=== PATIENT | male | born 1990 | race Caucasian/White ===

== ENCOUNTER 2020-07-07 19:02 | Emergency (ER) | payer BC ==
[2020-07-07 19:18] VITALS: RESP 18; TEMP 99.3
[2020-07-07 19:51] LABS: Basophils # (A) 0.2 k/uL (0-0.2); Basophils % (A) 3 %; Eosinophils # (A) 0.3 k/uL (0-0.7); Eosinophils % (A) 4 %; HCT 43.6 % (39.0-53.0); HGB 14.9 gm/dL (13.0-17.5); Lymphocytes # (A) 2.2 k/uL (1.0-4.8); Lymphocytes % (A) 32 %; MCH 31.7 pg (25.0-35.0); MCHC 34.3 g/dL (31.0-37.0); MCV 92.5 fL (80.0-100.0); Mean Platelet Volume 6.8; Monocytes % (A) 14 %; Neutrophils # (A) 2.9 k/uL (1.3-7.7); Neutrophils % (A) 43 %; Platelet Count 345 k/uL (150-450); RBC 4.72 m/uL (4.30-5.90); RDW 15.7 % (11.5-15.5); WBC 6.8 k/uL (3.8-10.6)
--- NOTE | 2020-07-07 19:58 | CT ---
EXAMINATION TYPE: CT brain wo con DATE OF EXAM: 07/07/2020 COMPARISON: None available. HISTORY: paresthesias CT DLP: 1090.4 mGycm. Automated Exposure Control for Dose Reduction was Utilized. TECHNIQUE: CT scan of the head is performed without contrast. FINDINGS: There is no acute intracranial hemorrhage, mass effect, or midline shift identified. The ventricles and sulci are within normal limits in size. There is a small left maxillary sinus mucus retention cyst. The globes are intact and the visualized sinuses are otherwise clear. IMPRESSION: No acute intracranial hemorrhage, mass effect, or midline shift is seen.
[2020-07-07 20:17] LABS: ALT 187 U/L (4-49); AST 76 U/L (17-59); African American GFR (CKD) >90 (>60 ml/min/1.73 sqM); Albumin 4.8 g/dL (3.5-5.0); Alkaline Phosphatase 58 U/L (38-126); Anion Gap 10 mmol/L; Blood Urea Nitrogen 19 mg/dL (9-20); Carbon Dioxide 23 mmol/L (22-30); Chloride 110 mmol/L (98-107); Glucose 100 mg/dL (74-99); Lipase 57 U/L (23-300); Magnesium 2.1 mg/dL (1.6-2.3); Non-African American GFR(CKD) >90 (>60 ml/min/1.73 sqM); Phosphorus 3.8 mg/dL (2.5-4.5); Potassium 4.6 mmol/L (3.5-5.1); Sodium 143 mmol/L (137-145); Total Bilirubin 0.4 mg/dL (0.2-1.3); Total Protein 7.7 g/dL (6.3-8.2)
[2020-07-07] MEDS ORDERED: SODIUM CHLORIDE 0.9% 500 ML 500 ML IV ONE (20:25)
[2020-07-07 21:02] LABS: Appearance,Urine Clear (Clear); Bilirubin,Urine Negative (Negative); Blood,Urine Negative (Negative); Color,Urine Yellow; Glucose,Urine (UA) Negative (Negative); Ketones,Urine Negative (Negative); Leukocyte Esterase,Urine Negative (Negative); Nitrite,Urine Negative (Negative); PH, Urine 6.5 (5.0-8.0); Protein,Urine Negative (Negative); Specific Gravity,Urine 1.024 (1.001-1.035); Urobilinogen,Urine <2.0 mg/dL (<2.0)
[2020-07-07 21:05] VITALS: BP 137/93; PULSE 85
[2020-07-07 21:14] LABS: Amphetamine Screen,Urine Not Detected (NotDetected); Barbiturate Screen,Urine Not Detected (NotDetected); Benzodiazepines Screen,Urine Not Detected (NotDetected); Cocaine Screen,Urine Not Detected (NotDetected); Methadone Screen, Urine Not Detected (NotDetected); Opiate Screen,Urine Not Detected (NotDetected); Oxycodone Screen, Urine Not Detected (NotDetected); Phencyclidine Screen,Urine Not Detected (NotDetected); Tricyclic Antidepressant,Urine Not Detected (NotDetected); Urn Cannabinoid Scrn Not Detected (NotDetected)
--- NOTE | 2020-07-07 21:44 | ED ---
General Adult HPI - General Chief complaint: Neuro Symptoms/Deficit Stated complaint: numbness hands/legs Time Seen by Provider: 07/07/20 19:26 Source: patient, RN notes reviewed, old records reviewed Mode of arrival: ambulatory Limitations: no limitations - History of Present Illness Initial comments: 29-year-old male patient to ED for evaluation. Patient reports that for the last 3 days he has been having paresthesias from his foot that are ascending. He reports that his gait is unstable. Also some paresthesias of the hands. Patient also reports that for the last 4 weeks she has been having right upper quadrant pain. Patient was admitted to [facility] from 07/03 through 07/06 when he reportedly had extensive investigations. They determined that his liver was enlarged however there is no other acute process that they identified. She denies any headache or any other areas of pain. Denies any other complaints. Systemic: Pt denies fatigue, fever/chills, rash. Pt denies weakness, night sweats, weight loss. Neuro: Pt denies headache, visual disturbances, syncope or pre-syncope. HEENT: Pt denies ocular discharge or irritation, otalgia, rhinorrhea, pharyngitis or notable lymphadenopathy. Cardiopulmonary: Pt denies chest pain, SOB, heart palpitations, dyspnea on exertion. Abdominal/GI: Pt denies n/v/d. : Pt denies dysuria, burning w/ urination, frequency/urgency. Denies new onset urinary or bowel incontinence. MSK: Pt denies loss of strength. - Related Data Home Medications Medication Instructions Recorded Confirmed No Known Home Medications 07/07/20 07/07/20 Allergies Allergy/AdvReac Type Severity Reaction Status Date / Time No Known Allergies Allergy Verified 07/07/20 20:14 Review of Systems ROS Statement: Those systems with pertinent positive or pertinent negative responses have been documented in the HPI. ROS Other: All systems not noted in ROS Statement are negative. Past Medical History Past Medical History: No Reported History History of Any Multi-Drug Resistant Organisms: None Reported Past Surgical History: No Surgical Hx Reported Past Anesthesia/Blood Transfusion Reactions: No Reported Reaction Past Psychological History: Anxiety, Depression Smoking Status: Current every day smoker Past Alcohol Use History: Occasional Past Drug Use History: Marijuana, Methamphetamine - Past Family History Mother Family Medical History: Hypertension, Thyroid Disorder Father Family Medical History: No Reported History, Unable to Obtain Sister(s) Family Medical History: No Reported History, Thyroid Disorder Brother(s) Family Medical History: Seizure Disorder Daughter(s) Family Medical History: No Reported History Son(s) Family Medical History: No Reported History General Exam - General Exam Comments Initial Comments: Constitutional: NAD, AOX3, Pt has pleasant affect. HEENT: NC/AT, trachea midline, neck supple, no lymphadenopathy. External ears appear normal, without discharge. Mucous membranes moist. Eyes PERRLA, EOM intact. There is no scleral icterus. No pallor noted. Cardiopulmonary: RRR, no murmurs, rubs or gallops, no JVD noted. Lungs CTAB in anterior and posterior lorenzo. No peripheral edema. Abdominal exam: Abdomen soft and non-distended. Abdomen mildly tender to palpation RUQ region. Derby sign negative. Bowel sounds active in LLQ. No hepatosplenomegaly. No ecchymosis Neuro: CN II-XII intact. No nuchal rigidity. No raccon eyes, no perea sign. No cervical spinal tenderness. MSK: Sensation intact in upper and lower extremities. 2 out of 4 patellar reflex. No posterior calf tenderness bilaterally, homans sign negative bilaterally. Posterior tibialis and radial pulse +2 bilaterally. Sensation intact in upper and lower extremities. Full active ROM in upper and lower extremities, 5/5 stregnth. Limitations: no limitations Course Vital Signs 07/07/20 07/07/20 19:12 21:03 Temperature 99.3 F Pulse Rate 101 H 85 Respiratory 18 18 Rate Blood Pressure 150/83 137/93 O2 Sat by Pulse 98 100 Oximetry Medical Decision Making - Medical Decision Making 29-year-old male patient to ED for evaluation of paresthesias and gait i nstability for the last 3 days. He denies any recent vaccinations or any recent illness. Patient also been having abdominal pain for the last 4 weeks. Patient admitted to [facility] and reportedly had extensive investigations. Laboratory investigations revealed mildly elevated lactic acid and liver enzymes. Otherwise her noncompressive. CT brain is negative for acute pathology. Physical exam displayed intact neurologic exam, strength and gross sensation is intact of upper left extremities. Case was discussed in depth with Dr. Vigil. We contacted admitting physician Dr. Lugo however he is not comfortable accepting as he does not have neurology coverage until tomorrow. I discussed this with patient. Patient will be transferred to the [facility]. I spoke with neurologist Dr. Todd. He accepts patient. Dr. Todd requested a LP in the emergency department him to be contacted with the results. The emergency physician Dr. Li was made aware of this per the transfer team. Patient will be transferred via EMS. - Lab Data Result diagrams: 07/07/20 19:40 07/07/20 19:40 Lab Results 07/07/20 07/07/20 07/07/20 Range/Units 19:40 19:40 19:40 WBC 6.8 (3.8-10.6) k/uL RBC 4.72 (4.30-5.90) m/uL Hgb 14.9 (13.0-17.5) gm/dL Hct 43.6 (39.0-53.0) % MCV 92.5 (80.0-100.0) fL MCH 31.7 (25.0-35.0) pg MCHC 34.3 (31.0-37.0) g/dL RDW 15.7 H (11.5-15.5) % Plt Count 345 (150-450) k/uL MPV 6.8 Neutrophils % 43 % Lymphocytes % 32 % Monocytes % 14 % Eosinophils % 4 % Basophils % 3 % Neutrophils # 2.9 (1.3-7.7) k/uL Lymphocytes # 2.2 (1.0-4.8) k/uL Monocytes # 1.0 (0-1.0) k/uL Eosinophils # 0.3 (0-0.7) k/uL Basophils # 0.2 (0-0.2) k/uL Sodium 143 (137-145) mmol/L Potassium 4.6 (3.5-5.1) mmol/L Chloride 110 H (98-107) mmol/L Carbon Dioxide 23 (22-30) mmol/L Anion Gap 10 mmol/L BUN 19 (9-20) mg/dL Creatinine 0.96 (0.66-1.25) mg/dL Est GFR (CKD-EPI)AfAm >90 (>60 ml/min/1.73 sqM) Est GFR (CKD-EPI)NonAf >90 (>60 ml/min/1.73 sqM) Glucose 100 H (74-99) mg/dL Plasma Lactic Acid [place] 2.6 H* (0.7-2.0) mmol/L Calcium 10.0 (8.4-10.2) mg/dL Phosphorus 3.8 (2.5-4.5) mg/dL Magnesium 2.1 (1.6-2.3) mg/dL Total Bilirubin 0.4 (0.2-1.3) mg/dL AST 76 H (17-59) U/L ALT 187 H (4-49) U/L Alkaline Phosphatase 58 (38-126) U/L Total Protein 7.7 (6.3-8.2) g/dL Albumin 4.8 (3.5-5.0) g/dL Lipase 57 (23-300) U/L Urine Color Urine Appearance (Clear) Urine pH (5.0-8.0) Ur Specific [place] (1.001-1.035) Urine Protein (Negative) Urine Glucose (UA) (Negative) Urine Ketones (Negative) Urine Blood (Negative) Urine Nitrite (Negative) Urine Bilirubin (Negative) Urine Urobilinogen (<2.0) mg/dL Ur Leukocyte Esterase (Negative) Urine Opiates Screen (NotDetected) Ur Oxycodone Screen (NotDetected) Urine Methadone Screen (NotDetected) Ur Propoxyphene Screen (NotDetected) Ur Barbiturates Screen (NotDetected) U Tricyclic Antidepress (NotDetected) Ur Phencyclidine Scrn (NotDetected) Ur Amphetamines Screen (NotDetected) U Methamphetamines Scrn (NotDetected) U Benzodiazepines Scrn (NotDetected) Urine Cocaine Screen (NotDetected) U Marijuana (THC) Screen (NotDetected) 07/07/20 Range/Units 20:40 WBC (3.8-10.6) k/uL RBC (4.30-5.90) m/uL Hgb (13.0-17.5) gm/dL Hct (39.0-53.0) % MCV (80.0-100.0) fL MCH (25.0-35.0) pg MCHC (31.0-37.0) g/dL RDW (11.5-15.5) % Plt Count (150-450) k/uL MPV Neutrophils % % Lymphocytes % % Monocytes % % Eosinophils % % Basophils % % Neutrophils # (1.3-7.7) k/uL Lymphocytes # (1.0-4.8) k/uL Monocytes # (0-1.0) k/uL Eosinophils # (0-0.7) k/uL Basophils # (0-0.2) k/uL Sodium (137-145) mmol/L Potassium (3.5-5.1) mmol/L Chloride (98-107) mmol/L Carbon Dioxide (22-30) mmol/L Anion Gap mmol/L BUN (9-20) mg/dL Creatinine (0.66-1.25) mg/dL Est GFR (CKD-EPI)AfAm (>60 ml/min/1.73 sqM) Est GFR (CKD-EPI)NonAf (>60 ml/min/1.73 sqM) Glucose (74-99) mg/dL Plasma Lactic Acid Bradley (0.7-2.0) mmol/L Calcium (8.4-10.2) mg/dL Phosphorus (2.5-4.5) mg/dL Magnesium (1.6-2.3) mg/dL Total Bilirubin (0.2-1.3) mg/dL AST (17-59) U/L ALT (4-49) U/L Alkaline Phosphatase (38-126) U/L Total Protein (6.3-8.2) g/dL Albumin (3.5-5.0) g/dL Lipase (23-300) U/L Urine Color Yellow Urine Appearance Clear (Clear) Urine pH 6.5 (5.0-8.0) Ur Specific [place] 1.024 (1.001-1.035) Urine Protein Negative (Negative) Urine Glucose (UA) Negative (Negative) Urine Ketones Negative (Negative) Urine Blood Negative (Negative) Urine Nitrite Negative (Negative) Urine Bilirubin Negative (Negative) Urine Urobilinogen <2.0 (<2.0) mg/dL Ur Leukocyte Esterase Negative (Negative) Urine Opiates Screen Not Detected (NotDetected) Ur Oxycodone Screen Not Detected (NotDetected) Urine Methadone Screen Not Detected (NotDetected) Ur Propoxyphene Screen Not Detected (NotDetected) Ur Barbiturates Screen Not Detected (NotDetected) U Tricyclic Antidepress Not Detected (NotDetected) Ur Phencyclidine Scrn Not Detected (NotDetected) Ur Amphetamines Screen Not Detected (NotDetected) U Methamphetamines Scrn Not Detected (NotDetected) U Benzodiazepines Scrn Not Detected (NotDetected) Urine Cocaine Screen Not Detected (NotDetected) U Marijuana (THC) Screen Not Detected (NotDetected) Disposition Clinical Impression: Paresthesias, Abdominal pain Disposition: OTHER INSTITUTION NOT DEFINED Condition: Serious Is patient prescribed a controlled substance at d/c from ED?: No Referrals: Bro Reyes Jr, DO [Primary Care Provider] - 1-2 days - Out of Hospital Transfer - Req. Specs Out of Hospital Transfer - Requested Specifics: Other Emergency Center ([facility] - neurology)
== END 2020-07-07 22:07 | disposition other institution (70) ==
LOC: EC 19:02
DX: R10.11 Right upper quadrant pain (principal); R20.2 Paresthesia of skin; R26.89 Other abnormalities of gait and mobility; R74.02 Elevation of levels of lactic acid dehydrogenase [LDH]; R74.8 Abnormal levels of other serum enzymes; F17.200 Nicotine dependence, unspecified, uncomplicated
CPT/HCPCS: 36415; 70450; 80053; 80306; 81003; 83605; 83690; 83735; 84100; 85025; 96360; 99285

== ENCOUNTER 2022-09-30 22:51 | Inpatient (IN) | payer OTHER ==
[2022-10-01 00:41] LABS: Appearance,Urine Clear (Clear); Bilirubin,Urine Negative (Negative); Blood,Urine Negative (Negative); Color,Urine Yellow; Glucose,Urine (UA) Negative (Negative); Ketones,Urine Trace (Negative); Leukocyte Esterase,Urine Negative (Negative); Nitrite,Urine Negative (Negative); PH, Urine 5.5 (5.0-8.0); Protein,Urine Trace (Negative); Specific Gravity,Urine 1.032 (1.001-1.035)
[2022-10-01 00:59] LABS: Amphetamine Screen,Urine Not Detected (NotDetected); Barbiturate Screen,Urine Not Detected (NotDetected); Benzodiazepines Screen,Urine Not Detected (NotDetected); Cocaine Screen,Urine Not Detected (NotDetected); Methadone Screen, Urine Not Detected (NotDetected); Opiate Screen,Urine Not Detected (NotDetected); Oxycodone Screen, Urine Not Detected (NotDetected); Phencyclidine Screen,Urine Not Detected (NotDetected); Tricyclic Antidepressant,Urine Not Detected (NotDetected); Urn Cannabinoid Scrn Not Detected (NotDetected)
[2022-10-01] MEDS ORDERED: ONDANSETRON ODT 4 MG TAB PO STA (01:01)
--- NOTE | 2022-10-01 01:51 | ED ---
Psych HPI - General Chief Complaint: Psychiatric Symptoms Stated Complaint: Mental health Time Seen by Provider: 09/30/22 22:55 Source: patient Mode of arrival: ambulatory - History of Present Illness Initial Comments: 31-year-old male with past medical history of major depressive disorder with psychotic features, inhalant abuse who presents to the emergency department reporting auditory hallucinations. States that he hears voices telling him that he is worthless and that he needs to kill himself. He was recently hospitalized for similar complaints. He was started on several medications. Reports to me that he does not been taking them because they make him nauseated and he vomits. He has yet to follow up outpatient with his counselor. Does admit to inhalant abuse. He denies fevers. No cough. No sick contacts with similar symptoms. No other alleviating, precipitating or modifying factors - Related Data Previous Rx's Medication Instructions Recorded Mirtazapine [Remeron] 15 mg PO HS 30 Days #30 tab 10/06/22 QUEtiapine [SEROquel] 100 mg PO HS 30 Days #30 tab 10/06/22 Venlafaxine HCl ER [Effexor XR] 75 mg PO DAILY 30 Days #30 cap 10/06/22 Allergies Allergy/AdvReac Type Severity Reaction Status Date / Time No Known Allergies Allergy Verified 09/30/22 22:57 Review of Systems ROS Statement: Those systems with pertinent positive or pertinent negative responses have been documented in the HPI. ROS Other: All systems not noted in ROS Statement are negative. Past Medical History Past Medical History: No Reported History History of Any Multi-Drug Resistant Organisms: None Reported Past Surgical History: No Surgical Hx Reported Past Anesthesia/Blood Transfusion Reactions: No Reported Reaction Past Psychological History: Anxiety, Bipolar, Depression, PTSD, Schizophrenia Smoking Status: Current every day smoker Past Alcohol Use History: Occasional Past Drug Use History: None Reported - Past Family History Mother Family Medical History: Hypertension, Thyroid Disorder Father Family Medical History: No Reported History, Unable to Obtain Sister(s) Family Medical History: No Reported History, Thyroid Disorder Brother(s) Family Medical History: Seizure Disorder Daughter(s) Family Medical History: No Reported History Son(s) Family Medical History: No Reported History General Exam Limitations: no limitations General appearance: alert, in no apparent distress Head exam: Present: atraumatic, normocephalic, normal inspection Eye exam: Present: normal appearance, PERRL, EOMI. Absent: scleral icterus, conjunctival injection, periorbital swelling ENT exam: Present: normal exam, mucous membranes moist Neck exam: Present: normal inspection. Absent: tenderness, meningismus, lymphadenopathy Respiratory exam: Present: normal lung sounds bilaterally. Absent: respiratory distress, wheezes, rales, rhonchi, stridor Cardiovascular Exam: Present: regular rate, normal rhythm, normal heart sounds. Absent: systolic murmur, diastolic murmur, rubs, gallop, clicks GI/Abdominal exam: Present: soft, normal bowel sounds. Absent: distended, tenderness, guarding, rebound, rigid Extremities exam: Present: normal inspection, full ROM, normal capillary refill. Absent: tenderness, pedal edema, joint swelling, calf tenderness Back exam: Present: normal inspection Neurological exam: Present: alert, oriented X3, CN II-XII intact Psychiatric exam: Present: depressed, flat affect, suicidal ideation Skin exam: Present: warm, dry, intact, normal color. Absent: rash Course Vital Signs 09/30/22 22:52 Temperature 97.9 F Pulse Rate 117 H Respiratory 26 H Rate Blood Pressure 132/80 O2 Sat by Pulse 98 Oximetry Medical Decision Making - Medical Decision Making Was pt. sent in by a medical professional or institution (ELI Frank, SLAB INSPECTOR, urgent care, hospital, or residential...) When possible be specific @ -No Did you speak to anyone other than the patient for history (EMS, parent, family, police, friend...)? What history was obtained from this source @ -No Did you review nursing and triage notes (agree or disagree)? Why? @ -I reviewed and agree with nursing and triage notes Were old charts reviewed (outside hosp., previous admission, EMS record, old EKG, old radiological studies, urgent care reports/EKG's, residential records)? Report findings @ -No old charts were reviewed Differential Diagnosis (chest pain, altered mental status, abdominal pain women, abdominal pain men, vaginal bleeding, weakness, fever, dyspnea, syncope, headache, dizziness, GI bleed, back pain, seizure, CVA, palpatations, mental health, musculoskeletal)? @ -depression, anxiety, ODD, ADHD, schizophrenia, psychosis, drug use EKG interpreted by me (3pts min.). @ -Not done X-rays interpreted by me (1pt min.). @ -None done CT interpreted by me (1pt min.). @ -None done U/S interpreted by me (1pt. min.). @ -None done What testing was considered but not performed or refused? (CT, X-rays, U/S, labs)? Why? @ -None What meds were considered but not given or refused? Why? @ -None Did you discuss the management of the patient with other professionals (professionals i.e. DrShabana, PA, SLAB INSPECTOR, lab, RT, psych nurse, clinical social work aide, forming machine upkeep mechanic helper, teacher, correctional officer lieutenant, case investigator)? Give summary @ -EPS nurse Was smoking cessation discussed for >3mins.? @ -No Was critical care preformed (if so, how long)? @ -No Were there social determinants of health that impacted care today? How? (Homelessness, low income, unemployed, alcoholism, drug addiction, transportation, low edu. Level, literacy, decrease access to med. care, assisted, rehab)? @ -No Was there de-escalation of care discussed even if they declined (Discuss DNR or withdrawal of care, Hospice)? DNR status @ -No What co-morbidities impacted this encounter? (DM, HTN, Smoking, COPD, CAD, Cancer, CVA, ARF, Chemo, Hep., AIDS, mental health diagnosis, sleep apnea, morbid obesity)? @ -depression with psychotic features Was patient admitted / discharged? Hospital course, mention meds given and route, prescriptions, significant lab abnormalities, going to OR and other pertinent info. @ -Upon arrival patient is placed into room 11. A thorough history and physical exam was performed. Patient offered nausea medications however originally refused. Alcohol is negative. Drug screen is negative. He is medically cleared for EPS evaluation. EPS to evaluate the patient. Requests CBC, CMP and a Covid. This is ordered. Currently awaiting further recommendations Undiagnosed new problem with uncertain prognosis? @ -No Drug Therapy requiring intensive monitoring for toxicity (Heparin, Nitro, Insulin, Cardizem)? @ -No Were any procedures done? @ -No Diagnosis/symptom? @ -acute depression, sucidal ideations Acute, or Chronic, or Acute on Chronic? @ -acute Uncomplicated (without systemic symptoms) or Complicated (systemic symptoms)? @ -complicated Side effects of treatment? @ -No Exacerbation, Progression, or Severe Exacerbation? @ -No Poses a threat to life or bodily function? How? (Chest pain, [place], [place], pneumonia, PE, COPD, DKA, ARF, appy, cholecystitis, CVA, Diverticulitis, Homicidal, Suicidal, threat to staff... and all critical care pts) @ -Yes - Lab Data Result diagrams: 10/01/22 02:00 10/04/22 06:25 Lab Results 10/01/22 10/01/22 10/01/22 Range/Units 00:15 02:00 02:00 WBC 8.1 (3.8-10.6) k/uL RBC 4.39 (4.30-5.90) m/uL Hgb 14.3 (13.0-17.5) gm/dL Hct 38.7 L (39.0-53.0) % MCV 88.2 (80.0-100.0) fL MCH 32.6 (25.0-35.0) pg MCHC 36.9 (31.0-37.0) g/dL RDW 14.3 (11.5-15.5) % Plt Count 266 (150-450) k/uL MPV 7.4 Neutrophils % 48 % Lymphocytes % 43 % Monocytes % 4 % Eosinophils % 2 % Basophils % 1 % Neutrophils # 3.9 (1.3-7.7) k/uL Lymphocytes # 3.4 (1.0-4.8) k/uL Monocytes # 0.3 (0-1.0) k/uL Eosinophils # 0.2 (0-0.7) k/uL Basophils # 0.1 (0-0.2) k/uL Sodium 136 L (137-145) mmol/L Potassium 3.9 (3.5-5.1) mmol/L Chloride 104 (98-107) mmol/L Carbon Dioxide 22 (22-30) mmol/L Anion Gap 10 mmol/L BUN 17 (9-20) mg/dL Creatinine 0.91 (0.66-1.25) mg/dL Est GFR (CKD-EPI)AfAm >90 (>60 ml/min/1.73 sqM) Est GFR (CKD-EPI)NonAf >90 (>60 ml/min/1.73 sqM) Glucose 93 (74-99) mg/dL Estimated Ave Glu mg/dL Hemoglobin A1c (0.0-6.0) % Calcium 8.5 (8.4-10.2) mg/dL Total Bilirubin 0.5 (0.2-1.3) mg/dL AST 24 (17-59) U/L ALT 63 H (4-49) U/L Alkaline Phosphatase 80 (38-126) U/L Total Protein 6.7 (6.3-8.2) g/dL Albumin 4.2 (3.5-5.0) g/dL Urine Color Yellow Urine Appearance Clear (Clear) Urine pH 5.5 (5.0-8.0) Ur Specific [place] 1.032 (1.001-1.035) Urine Protein Trace H (Negative) Urine Glucose (UA) Negative (Negative) Urine Ketones Trace H (Negative) Urine Blood Negative (Negative) Urine Nitrite Negative (Negative) Urine Bilirubin Negative (Negative) Urine Urobilinogen 2.0 (<2.0) mg/dL Ur Leukocyte Esterase Negative (Negative) Urine Opiates Screen Not Detected (NotDetected) Ur Oxycodone Screen Not Detected (NotDetected) Urine Methadone Screen Not Detected (NotDetected) Ur Propoxyphene Screen Not Detected (NotDetected) Ur Barbiturates Screen Not Detected (NotDetected) U Tricyclic Antidepress Not Detected (NotDetected) Ur Phencyclidine Scrn Not Detected (NotDetected) Ur Amphetamines Screen Not Detected (NotDetected) U Methamphetamines Scrn Not Detected (NotDetected) U Benzodiazepines Scrn Not Detected (NotDetected) Urine Cocaine Screen Not Detected (NotDetected) U Marijuana (THC) Screen Not Detected (NotDetected) Coronavirus (PCR) (Not Detectd) 10/01/22 10/01/22 Range/Units 02:00 02:00 WBC (3.8-10.6) k/uL RBC (4.30-5.90) m/uL Hgb (13.0-17.5) gm/dL Hct (39.0-53.0) % MCV (80.0-100.0) fL MCH (25.0-35.0) pg MCHC (31.0-37.0) g/dL RDW (11.5-15.5) % Plt Count (150-450) k/uL MPV Neutrophils % % Lymphocytes % % Monocytes % % Eosinophils % % Basophils % % Neutrophils # (1.3-7.7) k/uL Lymphocytes # (1.0-4.8) k/uL Monocytes # (0-1.0) k/uL Eosinophils # (0-0.7) k/uL Basophils # (0-0.2) k/uL Sodium (137-145) mmol/L Potassium (3.5-5.1) mmol/L Chloride (98-107) mmol/L Carbon Dioxide (22-30) mmol/L Anion Gap mmol/L BUN (9-20) mg/dL Creatinine (0.66-1.25) mg/dL Est GFR (CKD-EPI)AfAm (>60 ml/min/1.73 sqM) Est GFR (CKD-EPI)NonAf (>60 ml/min/1.73 sqM) Glucose (74-99) mg/dL Estimated Ave Glu mg/dL 124 Hemoglobin A1c 6.0 (0.0-6.0) % Calcium (8.4-10.2) mg/dL Total Bilirubin (0.2-1.3) mg/dL AST (17-59) U/L ALT (4-49) U/L Alkaline Phosphatase (38-126) U/L Total Protein (6.3-8.2) g/dL Albumin (3.5-5.0) g/dL Urine Color Urine Appearance (Clear) Urine pH (5.0-8.0) Ur Specific [place] (1.001-1.035) Urine Protein (Negative) Urine Glucose (UA) (Negative) Urine Ketones (Negative) Urine Blood (Negative) Urine Nitrite (Negative) Urine Bilirubin (Negative) Urine Urobilinogen (<2.0) mg/dL Ur Leukocyte Esterase (Negative) Urine Opiates Screen (NotDetected) Ur Oxycodone Screen (NotDetected) Urine Methadone Screen (NotDetected) Ur Propoxyphene Screen (NotDetected) Ur Barbiturates Screen (NotDetected) U Tricyclic Antidepress (NotDetected) Ur Phencyclidine Scrn (NotDetected) Ur Amphetamines Screen (NotDetected) U Methamphetamines Scrn (NotDetected) U Benzodiazepines Scrn (NotDetected) Urine Cocaine Screen (NotDetected) U Marijuana (THC) Screen (NotDetected) Coronavirus (PCR) Not Detected (Not Detectd) Disposition Clinical Impression: Major depressive disorder, recurrent episode, severe, with psychotic behavior Disposition: ADMITTED IP TO THIS HOSP Condition: Stable Is patient prescribed a controlled substance at d/c from ED?: No - Out of Hospital Transfer - Req. Specs Out of Hospital Transfer - Requested Specifics: Psychiatric Non-ICU
[2022-10-01 02:11] LABS: Basophils # (A) 0.1 k/uL (0-0.2); Basophils % (A) 1 %; Eosinophils # (A) 0.2 k/uL (0-0.7); Eosinophils % (A) 2 %; HCT 38.7 % (39.0-53.0); HGB 14.3 gm/dL (13.0-17.5); Lymphocytes # (A) 3.4 k/uL (1.0-4.8); Lymphocytes % (A) 43 %; MCH 32.6 pg (25.0-35.0); MCHC 36.9 g/dL (31.0-37.0); MCV 88.2 fL (80.0-100.0); Mean Platelet Volume 7.4; Monocytes # (A) 0.3 k/uL (0-1.0); Monocytes % (A) 4 %; Neutrophils # (A) 3.9 k/uL (1.3-7.7); Neutrophils % (A) 48 %; Platelet Count 266 k/uL (150-450); RBC 4.39 m/uL (4.30-5.90); RDW 14.3 % (11.5-15.5); WBC 8.1 k/uL (3.8-10.6)
[2022-10-01 02:19] LABS: ALT 63 U/L (4-49); AST 24 U/L (17-59); African American GFR (CKD) >90 (>60 ml/min/1.73 sqM); Albumin 4.2 g/dL (3.5-5.0); Alkaline Phosphatase 80 U/L (38-126); Anion Gap 10 mmol/L; Blood Urea Nitrogen 17 mg/dL (9-20); Calcium 8.5 mg/dL (8.4-10.2); Carbon Dioxide 22 mmol/L (22-30); Chloride 104 mmol/L (98-107); Glucose 93 mg/dL (74-99); Non-African American GFR(CKD) >90 (>60 ml/min/1.73 sqM); Potassium 3.9 mmol/L (3.5-5.1); Sodium 136 mmol/L (137-145); Total Bilirubin 0.5 mg/dL (0.2-1.3); Total Protein 6.7 g/dL (6.3-8.2)
[2022-10-01] MEDS ORDERED: HALOPERIDOL LACTATE 5 MG/ML 1 ML VIAL IM PRN (04:16)
[2022-10-01] MEDS ORDERED: LORazepam 2 MG/ML INJ IM PRN (04:20)
[2022-10-01] MEDS: DULoxetine HCL 60 MG CAPSULE.DR PO SCH ×2 (08:32→21:42)
[2022-10-01] MEDS: NICOTINE 14MG/24HR PATCH TRANSDERM SCH (08:32)
[2022-10-01] MEDS: haloperidoL 5 MG TAB PO PRN ×2 (08:32→13:31)
[2022-10-01] MEDS ORDERED: busPIRone HCl 10 MG TAB PO SCH (09:00)
--- NOTE | 2022-10-01 12:58 | P.HP ---
Psychiatric H&P - . H&P Date: 10/01/22 History & Physical: Allergies Allergy/AdvReac Type Severity Reaction Status Date / Time No Known Allergies Allergy Verified 09/30/22 22:57 Vital Signs Temp 98.2 F 10/01/22 04:56 Pulse 100 10/01/22 04:56 Resp 18 10/01/22 04:56 BP 125/83 10/01/22 04:56 Pulse Ox 96 10/01/22 04:56 FiO2 Intake & Output 09/30/22 10/01/22 10/01/22 18:59 06:59 18:59 Weight 93.894 kg Laboratory Last Values WBC 8.1 k/uL (3.8-10.6) 10/01/22 02:00 RBC 4.39 m/uL (4.30-5.90) 10/01/22 02:00 Hgb 14.3 gm/dL (13.0-17.5) 10/01/22 02:00 Hct 38.7 % (39.0-53.0) L 10/01/22 02:00 MCV 88.2 fL (80.0-100.0) 10/01/22 02:00 MCH 32.6 pg (25.0-35.0) 10/01/22 02:00 MCHC 36.9 g/dL (31.0-37.0) 10/01/22 02:00 RDW 14.3 % (11.5-15.5) 10/01/22 02:00 Plt Count 266 k/uL (150-450) 10/01/22 02:00 MPV 7.4 10/01/22 02:00 Neutrophils % 48 % 10/01/22 02:00 Lymphocytes % 43 % 10/01/22 02:00 Monocytes % 4 % 10/01/22 02:00 Eosinophils % 2 % 10/01/22 02:00 Basophils % 1 % 10/01/22 02:00 Neutrophils # 3.9 k/uL (1.3-7.7) 10/01/22 02:00 Lymphocytes # 3.4 k/uL (1.0-4.8) 10/01/22 02:00 Monocytes # 0.3 k/uL (0-1.0) 10/01/22 02:00 Eosinophils # 0.2 k/uL (0-0.7) 10/01/22 02:00 Basophils # 0.1 k/uL (0-0.2) 10/01/22 02:00 Sodium 136 mmol/L (137-145) L 10/01/22 02:00 Potassium 3.9 mmol/L (3.5-5.1) 10/01/22 02:00 Chloride 104 mmol/L (98-107) 10/01/22 02:00 Carbon Dioxide 22 mmol/L (22-30) 10/01/22 02:00 Anion Gap 10 mmol/L 10/01/22 02:00 BUN 17 mg/dL (9-20) 10/01/22 02:00 Creatinine 0.91 mg/dL (0.66-1.25) 10/01/22 02:00 Est GFR (CKD-EPI)AfAm >90 (>60 ml/min/1.73 sqM) 10/01/22 02:00 Est GFR (CKD-EPI)NonAf >90 (>60 ml/min/1.73 sqM) 10/01/22 02:00 Glucose 93 mg/dL (74-99) 10/01/22 02:00 Calcium 8.5 mg/dL (8.4-10.2) 10/01/22 02:00 Total Bilirubin 0.5 mg/dL (0.2-1.3) 10/01/22 02:00 AST 24 U/L (17-59) 10/01/22 02:00 ALT 63 U/L (4-49) H 10/01/22 02:00 Alkaline Phosphatase 80 U/L (38-126) 10/01/22 02:00 Total Protein 6.7 g/dL (6.3-8.2) 10/01/22 02:00 Albumin 4.2 g/dL (3.5-5.0) 10/01/22 02:00 Urine Color Yellow 10/01/22 00:15 Urine Appearance Clear (Clear) 10/01/22 00:15 Urine pH 5.5 (5.0-8.0) 10/01/22 00:15 Ur Specific [place]ley 1.032 (1.001-1.035) 10/01/22 00:15 Urine Protein Trace (Negative) H 10/01/22 00:15 Urine Glucose (UA) Negative (Negative) 10/01/22 00:15 Urine Ketones Trace (Negative) H 10/01/22 00:15 Urine Blood Negative (Negative) 10/01/22 00:15 Urine Nitrite Negative (Negative) 10/01/22 00:15 Urine Bilirubin Negative (Negative) 10/01/22 00:15 Urine Urobilinogen 2.0 mg/dL (<2.0) 10/01/22 00:15 Ur Leukocyte Esterase Negative (Negative) 10/01/22 00:15 Urine Opiates Screen Not Detected (NotDetected) 10/01/22 00:15 Ur Oxycodone Screen Not Detected (NotDetected) 10/01/22 00:15 Urine Methadone Screen Not Detected (NotDetected) 10/01/22 00:15 Ur Propoxyphene Screen Not Detected (NotDetected) 10/01/22 00:15 Ur Barbiturates Screen Not Detected (NotDetected) 10/01/22 00:15 U Tricyclic Antidepress Not Detected (NotDetected) 10/01/22 00:15 Ur Phencyclidine Scrn Not Detected (NotDetected) 10/01/22 00:15 Ur Amphetamines Screen Not Detected (NotDetected) 10/01/22 00:15 U Methamphetamines Scrn Not Detected (NotDetected) 10/01/22 00:15 U Benzodiazepines Scrn Not Detected (NotDetected) 10/01/22 00:15 Urine Cocaine Screen Not Detected (NotDetected) 10/01/22 00:15 U Marijuana (THC) Screen Not Detected (NotDetected) 10/01/22 00:15 Coronavirus (PCR) Not Detected (Not Detectd) 10/01/22 02:00 10/01/22 12:58 IDENTIFYING DATA: Patient is a , employed, 31-year-old male with significant history of nitrous oxide abuse who presented to our hospital on 10/01/2022, brought in on his own volition for concerns of suicidal ideation and auditory hallucinations. HPI: Patient presented to the hospital on 10/01/2022 with a chief complaint of "hearing voices telling me to kill myself that started about 4 days ago." The patient reports that he was feeling significantly better since he was last discharged on 09/19/2022 however has been unable to fill his medications for Seroquel or Lyrica upon discharge. He states that the Seroquel cost him $169 so he stopped taking the medication. The patient was subsequently admitted to our psychiatric unit. Upon evaluation on the psychiatric unit, the patient reported initially that he was feeling an imminent risk of harming himself due to the severity of the auditory hallucinations and depressive symptoms. He was placed on one-to-one supervision. He was also administered Haldol. On evaluation as provider, the patient reports that he has been suicidal for the past 2 weeks since he has been off his medication. He also reports that he has been expressing worsening auditory hallucinations. He says that these voices are "in my head and commanding me to do things like kill myself." Furthermore, the patient reports that he has been engaging in nitrous oxide abuse. He reports that his last use of nitrous oxide inhalant use was approximately 1 week ago. Currently, the patient is endorsing suicidal ideation. He is denying any homicidal ideation. He reports no significant symptoms of tereza outside of substance abuse. He denies any periods of excessive energy, grandiosity, mood lability, or increased goal-directed activity. He is currently not endorsing any paranoia or other delusions. He is unable to identify any acute stressors aside from stopping his prescribed medications due to cost. The patient signed himself voluntarily into the psychiatric unit. PAST PSYCHIATRIC HISTORY: Patient has a previous history of major depressive disorder with psychotic features, inhalant abuse, and nicotine dependence. He was last hospitalized under psychiatric unit in August 2022 and was discharged on a regimen of BuSpar, Lyrica, Cymbalta, Seroquel. Patient denies any psychiatric outpatient follow-up. The patient attempted suicide by overdosing back in 2014. PMH: Past Medical History: No Reported History History of Any Multi-Drug Resistant Organisms: None Reported Past Surgical History: No Surgical Hx Reported Past Anesthesia/Blood Transfusion Reactions: No Reported Reaction Past Psychological History: Anxiety, Bipolar, Depression, PTSD, Schizophrenia Smoking Status: Current every day smoker Past Alcohol Use History: Occasional Past Drug Use History: None Reported ALLERGIES: NO KNOWN DRUG ALLERGIES CHEMICAL DEPENDENCY HISTORY: The patient reports that he has been smoking one pack per day of tobacco. He denies any marijuana, alcohol, or illicit drug use. He does admit to abusing nitric oxide. He says his last use was approximately one week ago. He states that he uses this daily. FAMILY PSYCHIATRIC/SUBSTANCE USE HISTORY: No reported family psychiatric history. SOCIAL HISTORY: Patient was born and raised in [place], [place]. He is to his Naty for the past 3 years. They have 4 children together. He currently lives with Naty and his 4 children. He completed high school. 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 He reports that he is currently on probation until April for retail fraud. MENTAL STATUS EXAM: General Appearance: Patient appears to be stated age is alert, directable, and attempts to cooperate. Patient appears to have fair hygiene and grooming. Behavior: Patient is seated without any agitated behavior. Eye contact is appropriate and psychomotor slowing was evident. Speech: Patient's speech is fluent and nonpressured. Mood/Affect: Patient reports their mood is depressed, affect is congruent and withdrawn. Suicidality/Homicidality: Patient denies having any homicidal ideation intent or plan. Patient endorses suicidal ideation. Perceptions: Patient denies any visual hallucinations however he does endorse auditory hallucinations. Though content/process: There is no evidence of any delusional thought content and thought process is linear and goal-directed. Memory and concentration: AOX3, grossly intact for the purposes of this session. Can spell "WORLD" backwards Judgment and insight: Fair STRENGTHS/WEAKNESSES: Strength is that the patient appears to have good family support. Weakness is that the patient engages in substance abuse and is nonadherent with treatment. INTELLECT: average IMPRESSIONS: Major depressive disorder, recurrent, severe, with psychotic features Inhalant use disorder Tobacco use disorder PLAN: -Patient is admitted under voluntary status to MHU for stabilization of psychiatric symptoms and safety. Patient signed adult voluntary form and medication consent and is placed in patient's chart. -Medications : We will increase Seroquel to 100 mg by mouth at bedtime for psychosis. Discussed with utilization management in regards to good Rx and other payment options for medications. Continued Cymbalta 60 mg by mouth twice a day for neuropathy and depression Start Remeron 15 mg by mouth at bedtime for depression/insomnia/nausea -Ativan and Haldol PRN for agitation/aggression -Patient was counselled on substance abuse and desired to cut back on use -Patient was informed of the risks, benefits and side effects of the medication and patient verbally consented to taking the medications. Patient signed med consent form and was placed in chart. -Internal Medicine consult to perform medical evaluation and physical. -NRT - nicotine patch -SW on board for discharge planning. Encourage patient to participate in groups to work on coping skills. 10/01/22 12:58
[2022-10-01] MEDS: MAG HYDROX/AL HYDROX/SIMETH 30 ML CUP PO PRN (13:23)
[2022-10-01] MEDS: LORazepam 1 MG TAB PO PRN (13:31)
[2022-10-01] MEDS ORDERED: PREGABALIN 50 MG CAP PO SCH (21:00)
[2022-10-01] MEDS ORDERED: QUEtiapine 25 MG TAB PO SCH (21:00)
[2022-10-01] MEDS: QUEtiapine 100 MG TAB PO SCH (21:42)
[2022-10-01] MEDS: MIRTAZAPINE 15 MG TAB PO SCH (21:42)
[2022-10-01] MEDS ORDERED: LACTULOSE 20 GM/30 ML CUP PO ONE (21:47)
--- NOTE | 2022-10-01 21:48 | P.CONS ---
History of Present Illness - Reason for Consult Consult date: 10/01/22 Medical management Requesting physician: Benji Dickey - Chief Complaint Suicidal - History of Present Illness As per psychiatrist Dr. Dickey records: Patient presented to the hospital on 10/01/2022 with a chief complaint of "hearing voices telling me to kill myself that started about 4 days ago." The patient reports that he was feeling significantly better since he was last discharged on 09/19/2022 however has been unable to fill his medications for Seroquel or Lyrica upon discharge. He states that the Seroquel cost him $169 so he stopped taking the medication. The patient was subsequently admitted to our psychiatric unit. Upon evaluation on the psychiatric unit, the patient reported initially that he was feeling an imminent risk of harming himself due to the severity of the auditory hallucinations and depressive symptoms. He was placed on one-to-one supervision. He was also administered Haldol. On evaluation as provider, the p atient reports that he has been suicidal for the past 2 weeks since he has been off his medication. He also reports that he has been expressing worsening auditory hallucinations. He says that these voices are "in my head and commanding me to do things like kill myself." Furthermore, the patient reports that he has been engaging in nitrous oxide abuse. He reports that his last use of nitrous oxide inhalant use was approximately 1 week ago. Currently, the patient is endorsing suicidal ideation. He is denying any homicidal ideation. He reports no significant symptoms of tereza outside of substance abuse. He denies any periods of excessive energy, grandiosity, mood lability, or increased goal-directed activity. He is currently not endorsing any paranoia or other delusions. He is unable to identify any acute stressors aside from stopping his prescribed medications due to cost. I'm seeing the patient later in the day. Rather sleepy. Feels depressed. Suicidal. Has not eaten well for a week. No bowel movement for a week. Episodes of perspiration. Tired. Depressed. Review of systems: GEN.: Tired EYES: None HEENT: None NECK: None RESPIRATORY: None CARDIOVASCULAR: None GASTROINTESTINAL: None GENITOURINARY: None MUSCULOSKELETAL: None LYMPHATICS: None HEMATOLOGICAL: None PSYCHIATRY: As above NEUROLOGICAL: None Past medical history to include: Bipolar, PTSD, schizophrenia Social history: Lives with his and children. Smokes cigarettes. Has been using nitrous oxide since 2019. In the past also started methamphetamines. Alcohol occasionally. Physical examination: VITAL SIGNS: 98.2, 100, 18, 08/19/1982, 96% room air GENERAL: BMI 31.5, laying in bed sleepy but answers questions. EYES: Pupils equal. Conjunctiva normal. HEENT: External appearance of nose and ears normal, oral cavity grossly normal. NECK: JVD not raised; masses not palpable. HEART: First and second heart sounds are normal; no edema. LUNGS: Respiratory rate normal; clear to auscultation. ABDOMEN: Soft, nontender, liver spleen not palpable, no masses palpable. PSYCH: [Answering questions, appropriately. Depressed.. MUSCULOSKELETAL:No Clubbing/cyanosis;muscles-grossly intact NEUROLOGICAL: Cranial nerves grossly intact; no facial asymmetry, power and sensation grossly intact. LYMPHATICS: No lymph nodes palpable in the axilla and neck INVESTIGATIONS, reviewed in the clinical context: White count 8.1 hemoglobin 14.3 platelets 266 sodium 126 potassium 3.9 BUN 17 creatinine 0.91 Urine drug screen: Unremarkable COVID-19 PCR: Not detected Assessment and plan: -Major depression recurrent with psychotic features Medications per psychiatry -Anorexia secondary to depression Expect improvement with antidepressant -Constipation with no bowel movement for last 7 days Lactulose 20 g times 1 -Chronic nicotine dependence, cigarette smoker Nicotine patch. Patient to follow-up with his family doctor Dr. Anthony Rivera upon discharge. Thank you Dr. Dickey Past Medical History Past Medical History: No Reported History History of Any Multi-Drug Resistant Organisms: None Reported Past Surgical History: No Surgical Hx Reported Past Anesthesia/Blood Transfusion Reactions: No Reported Reaction Past Psychological History: Anxiety, Bipolar, Depression, PTSD, Schizophrenia Smoking Status: Current every day smoker Past Alcohol Use History: Occasional Past Drug Use History: None Reported Additional Drug Use History / Comment(s): PT USED METHAMPHETAMINES ON 09/06/14 - Past Family History Mother Family Medical History: Hypertension, Thyroid Disorder Father Family Medical History: No Reported History, Unable to Obtain Sister(s) Family Medical History: No Reported History, Thyroid Disorder Brother(s) Family Medical History: Seizure Disorder Daughter(s) Family Medical History: No Reported History Son(s) Family Medical History: No Reported History Medications and Allergies Home Medications Medication Instructions Recorded Confirmed Type Acetaminophen Tab [Tylenol] 650 mg PO Q4HR PRN tab 09/24/22 Rx DULoxetine HCL [Cymbalta] 60 mg PO BID 30 Days #60 cap 09/24/22 Rx Nicotine 14Mg/24Hr Patch [Habitrol] 1 patch TRANSDERM DAILY 14 Days 09/24/22 Rx #14 patch Pregabalin [Lyrica] 50 mg PO HS 10 Days #10 cap 09/24/22 Rx QUEtiapine [SEROquel] 75 mg PO HS 30 Days #90 tab 09/24/22 Rx busPIRone HCl [Buspar] 10 mg PO BID 30 Days #60 tab 09/24/22 Rx Allergies Allergy/AdvReac Type Severity Reaction Status Date / Time No Known Allergies Allergy Verified 09/30/22 22:57 Physical Exam Vitals: Vital Signs Temp Pulse Pulse Resp BP BP Pulse Ox 10/01/22 04:56 98.2 F 100 18 125/83 96 09/30/22 22:52 97.9 F 117 H 26 H 132/80 98 Intake and Output 10/01/22 10/01/22 10/01/22 06:59 14:59 22:59 Other: Weight 93.894 kg Results CBC & Chem 7: 10/01/22 02:00 10/01/22 02:00 Labs: Abnormal Lab Results - Last 24 Hours (Table) 10/01/22 10/01/22 10/01/22 Range/Units 00:15 02:00 02:00 Hct 38.7 L (39.0-53.0) % Sodium 136 L (137-145) mmol/L ALT 63 H (4-49) U/L Urine Protein Trace H (Negative) Urine Ketones Trace H (Negative)
[2022-10-02] MEDS: NICOTINE 14MG/24HR PATCH TRANSDERM SCH (09:17)
[2022-10-02] MEDS: DULoxetine HCL 60 MG CAPSULE.DR PO SCH ×2 (09:17→20:35)
[2022-10-02] MEDS: haloperidoL 5 MG TAB PO PRN (09:18)
[2022-10-02] MEDS: LORazepam 1 MG TAB PO PRN (09:18)
[2022-10-02] MEDS: MAG HYDROX/AL HYDROX/SIMETH 30 ML CUP PO PRN (09:18)
[2022-10-02] MEDS ORDERED: ONDANSETRON ODT 4 MG TAB PO STA (13:40)
[2022-10-02] MEDS ORDERED: ONDANSETRON 4 MG TAB PO PRN (13:44)
[2022-10-02] MEDS: MIRTAZAPINE 15 MG TAB PO SCH (20:35)
[2022-10-02] MEDS: QUEtiapine 100 MG TAB PO SCH (20:35)
[2022-10-02] MEDS: PREGABALIN 75 MG CAP PO SCH (20:35)
[2022-10-03] MEDS: NICOTINE 14MG/24HR PATCH TRANSDERM SCH (09:20)
[2022-10-03] MEDS: PANTOPRAZOLE 40 MG TABLET PO SCH (09:20)
[2022-10-03] MEDS: DULoxetine HCL 60 MG CAPSULE.DR PO SCH ×2 (09:20→20:59)
[2022-10-03] MEDS: LORazepam 1 MG TAB PO PRN (16:03)
[2022-10-03] MEDS: ACETAMINOPHEN TAB 325 MG TAB PO PRN ×2 (16:03→21:00)
[2022-10-03] MEDS: MAG HYDROX/AL HYDROX/SIMETH 30 ML CUP PO PRN (19:12)
[2022-10-03] MEDS ORDERED: LACTULOSE 20 GM/30 ML CUP PO ONE (20:38)
[2022-10-03] MEDS: PREGABALIN 75 MG CAP PO SCH (20:59)
[2022-10-03] MEDS: QUEtiapine 100 MG TAB PO SCH (21:00)
[2022-10-03] MEDS: MIRTAZAPINE 15 MG TAB PO SCH (21:00)
[2022-10-03] MEDS: IOPAMIDOL CONTRAST (ORAL USE) VIAL PO PRN ×2 (22:19→23:30)
[2022-10-03] MEDS ORDERED: SODIUM CHLORIDE 0.9% 1,000 ML IV ONE (22:43)
--- NOTE | 2022-10-04 03:55 | CT ---
EXAMINATION TYPE: CT abdomen pelvis w con DATE OF EXAM: 10/04/2022 COMPARISON: None HISTORY: Right lower quadrant pain CT DLP: mGycm Automated exposure control for dose reduction was used. CONTRAST: The contrast was Isovue 100 mL. There is also oral contrast. The lung bases are clear. No pleural effusion. Heart size is normal. There is some minimal fatty infi ltration of the liver. Spleen and stomach pancreas and gallbladder appear intact. The bile ducts are nondilated. There is no adrenal mass. Kidneys show satisfactory contrast opacification. No hydronephrosis. Delaye d images show normal renal excretion. No retroperitoneal adenopathy. Appendix is posterior and appear s normal. There is normal contrast opacification of the small bowel. No dilated loops. No sign of a b owel obstruction. No intestinal wall thickening. There is no mesenteric edema. No ascites or free air. The bladder distends smoothly. No pelvic mass. No inguinal hernia. There are a few inguinal lymph nod es up to 1.5 cm. No hernia. The lumbar vertebrae have normal spacing and alignment. The posterior elements are intact. No taco raúl fracture. Bony pelvis is intact. The hip joints are intact. Sacroiliac joints appear normal. IMPRESSION: Negative CT scan abdomen and pelvis. Normal appendix. Mild fatty infiltration of the liver. No sign o f inflammatory bowel disease.
[2022-10-04 07:00] LABS: African American GFR (CKD) >90 (>60 ml/min/1.73 sqM); Anion Gap 9 mmol/L; Blood Urea Nitrogen 13 mg/dL (9-20); Calcium 8.7 mg/dL (8.4-10.2); Carbon Dioxide 25 mmol/L (22-30); Chloride 109 mmol/L (98-107); Glucose 93 mg/dL (74-99); Non-African American GFR(CKD) >90 (>60 ml/min/1.73 sqM); Potassium 4.4 mmol/L (3.5-5.1); Sodium 143 mmol/L (137-145)
[2022-10-04] MEDS: NICOTINE 14MG/24HR PATCH TRANSDERM SCH (08:22)
[2022-10-04] MEDS: PANTOPRAZOLE 40 MG TABLET PO SCH (08:22)
[2022-10-04] MEDS: ACETAMINOPHEN TAB 325 MG TAB PO PRN ×2 (08:24→16:46)
[2022-10-04] MEDS ORDERED: DICYCLOMINE 10 MG CAP PO STA (09:52)
[2022-10-04] MEDS ORDERED: DICYCLOMINE 10 MG CAP PO PRN (09:52)
[2022-10-04] MEDS: LORazepam 1 MG TAB PO PRN (10:06)
--- NOTE | 2022-10-04 14:11 | P.PN ---
Subjective Call physician: Dr. Lagos This is a pleasant 51 years old was admitted to the mental health unit on 10/01 with signs symptoms with major depressive disorder with psychotic features, he was seen and evaluated by medical service with Dr. Lagos on the same day. At that time he was found to have constipation and ordered lactulose one time, as well as tonic nicotine dependence and major depressive disorder. Patient also noticed to be obese with BMI of 31.5. Yesterday I was called by the sadness patient complains from abdominal pain and constipation and he wanted something for bowel movement, 1 extra dose of lactulose as provided. Shortly thereafter talked to me about the pt and she was concerned pt is having sever abd pain and need to be addressed , so we agreed on doing ct of the abdomen for further evaluation , ct is ordered with both oral and iv contrast (DDx was appendicitis , cholecystits, gastroenteritis, IBS, pancreatitis and hepatitis, bowel obstruction, psychogenic), on follow up with the bed side rn it looks like the pt was doing better and he as sitting in the room and playing cards with his colleagues, so i talked to the bed side rn galen and suggested to avoid iv contrast as i felt pt did not need it but ok for oral contrast , galen contacted dr. hall who decided to keep the ct contrast with both iv and oral contrast: Result showing negative CT scan abdomen and pelvis. Normal appendix. Mild fatty infiltration of the liver. No sign of inflammatory bowel disease) I saw the patient this morning he was lying in bed comfortable relaxed acute distress, he was still complaining from pain mainly in the right side of the abdomen with some nonspecific generalized tenderness. no reports for bleeding per rectum. He reports abdominal pain about 3/10 in severity, improving from 8-9/10 in severity last night. Nonspecific, nonradiating. No vomiting. No diarrhea. No active urinary complaints, and also patient denies chest pain or dyspnea. No coughing, no headache or dizziness weakness or numbness. I checked with the bedside nurse, is doing well this afternoon and he had his lunch and looks like he is improving Objective - Vital Signs Vital signs: Vital Signs Temp 97.7 F 10/04/22 07:00 Pulse 79 10/04/22 07:00 Resp 14 10/04/22 07:00 BP 122/57 10/04/22 07:00 Pulse Ox 97 10/04/22 07:00 FiO2 - Exam GENERAL: The patient is alert and oriented x3, not in any acute distress. Well developed, well nourished. HEENT: Pupils are round and equally reacting to light. EOMI. No scleral icterus. No conjunctival pallor. Normocephalic, atraumatic. No pharyngeal erythema. No thyromegaly. CARDIOVASCULAR: S1 and S2 present. No murmurs, rubs, or gallops. PULMONARY: Chest is clear to auscultation, no wheezing or crackles. -ABDOMEN: Soft, generalized mild, nondistended, normoactive bowel sounds. No palpable organomegaly. MUSCULOSKELETAL: No joint swelling or deformity. EXTREMITIES: No cyanosis, clubbing, or pedal edema. NEUROLOGICAL: Gross neurological examination did not reveal any focal deficits. SKIN: No rashes. no petechiae. - Labs CBC & Chem 7: 10/01/22 02:00 10/04/22 06:25 Labs: Abnormal Lab Results - Last 24 Hours (Table) 10/04/22 Range/Units 06:25 Chloride 109 H (98-107) mmol/L Assessment and Plan Assessment: Generalized nonspecific abdominal pain could be psychogenic versus irritable bowel syndrome vs other. Improving Constipation Nicotine dependence Obese with BMI of 31.5. Depression with psychotic features Plan: Continue with Protonix and add bentyl prn add Colace 100 mg bid x2 days for constipation Continue with Tylenol when necessary check liver enzymes and lipase and amylase management of psych illnesses as per psychiatric primary team we recommend patient follow up with GI service upon discharge, contact information Suleiman Jj is placed in his discharge instructions DVT prophylaxis: No need patient is mobile and low risk GI prophylaxis: Protonix we recommend patient also to follow up with his PCP Dr. Anthony Rivera in 1 week after discharge thank you for consulting us, we will see the patient on as needed basis, please call for any further question or clarification.
[2022-10-04 14:52] LABS: Albumin 4.2 g/dL (3.5-5.0); Bilirubin, Delta 0.3 mg/dL (0.0-0.2); Total Bilirubin 0.3 mg/dL (0.2-1.3); Total Protein 6.7 g/dL (6.3-8.2)
[2022-10-04] MEDS: MAGNESIUM HYDROXIDE 2,400 MG/10 ML CUP PO PRN (17:03)
[2022-10-04] MEDS ORDERED: DULoxetine HCL 30 MG CAPSULE.DR PO SCH (17:37)
[2022-10-04] MEDS ORDERED: VENLAFAXINE HCL ER 37.5 MG CAP PO STA (17:39)
[2022-10-04] MEDS: DOCUSATE 100 MG CAP PO SCH (20:32)
[2022-10-04] MEDS: QUEtiapine 100 MG TAB PO SCH (20:32)
[2022-10-04] MEDS: MIRTAZAPINE 15 MG TAB PO SCH (20:32)
[2022-10-04] MEDS ORDERED: DULoxetine HCL 60 MG CAPSULE.DR PO SCH (21:00)
--- NOTE | 2022-10-04 22:16 | P.PN ---
Progress Note - Text Progress Note Date: 10/04/22 Interval history: Patient was directable and agreeable to speak with bond writer. He reports depressed mood, still feeling like he is "better off ". He reports guilt, low concentration and appetite, feeling tired and endorses suicidal ideation with no specific plan at this time. He denies homicidal ideation, intent or plan. Denies any auditory or visual hallucinations. He reports feeling better since decreasing the Cymbalta, doesn't feel foggy anymore like he did on 60 mg BID. We reviewed his past medications in detail: Zoloft (2015), Effexor XR (2014, didn't stay on it), Wellbutrin, Seroquel, Klonopin, Remeron. Mental status exam: General Appearance: Patient appears to be stated age, alcocer, fair hygiene/grooming Behavior: No agitated behavior. Patient is calm and directable Speech: Patient's speech is fluent and non-pressured. Mood/Affect: Mood is depressed, affect is congruent and constricted. Suicidality/Homicidality: Patient endorses suicidal ideation, but denies homicidal ideation intent or plan. Perceptions: Patient denies any auditory or visual hallucinations. Though content/process: There is no evidence of any delusional thought content and thought process is linear and goal-directed. Memory and concentration: AOX3, grossly intact for the purposes of this session Judgment and insight: improving mildly Assessment/Plan: Continue with current diagnosis. Patient continues to meet criteria for inpatient psychiatric admission for symptom stabilization and safety. Cymbalta decreased to 30 mg x 1 today, then discontinue. Start Effexor XR 37.5 mg QAM for today, then increase to 75 mg daily in the morning starting tomorrow AM. Discontinue Lyrica since he does not feel it is helping his pain. He would like referral to inpatient rehab following discharge. He was seen by the medical doctor. CT abd/pelvis was negative. He was started on Colace. Hepatic panel, lipase and amylase ordered. Monitor for medication compliance and for any psychotropic medication side effects. Will continue to monitor ongoing response to treatment. Encouraged participation in milieu.
--- NOTE | 2022-10-04 22:22 | P.PN ---
Progress Note - Text Progress Note Date: 10/03/22 Interval history: Patient was directable and agreeable to speak with process description writer. He reports irritable mood, decreased appetite, nausea, feeling dizzy and confused. He denies suicidal or homicidal ideation, intent or plan. Denies any auditory or visual hallucinations. He complains of severe RUQ pain that radiates to the back. He appears in pain, sweat on his brow. He reports a history of fatty liver. I spoke with medical doctor Dr. Duvall and we will order him an CT abdomen/pelvis. Mental status exam: General Appearance: Patient appears to be stated age, alcocer, fair hygiene/grooming Behavior: No agitated behavior. Patient is calm and directable Speech: Patient's speech is fluent and non-pressured. Mood/Affect: Mood is irritable, affect is congruent and constricted. Suicidality/Homicidality: Patient endorses suicidal ideation, but denies homicidal ideation intent or plan. Perceptions: Patient denies any auditory or visual hallucinations. Though content/process: There is no evidence of any delusional thought content and thought process is linear and goal-directed. Memory and concentration: AOX3, grossly intact for the purposes of this session Judgment and insight: improving mildly Assessment/Plan: Continue with current diagnosis. Patient continues to meet criteria for inpatient psychiatric admission for symptom stabilization and safety. Decrease Cymbalta to 60 mg QHS and consider cross-taper onto another antidepressant, but will wait until abdominal work-up is completed before initiating another antidepressant. Increase Lyrica to 75 mg daily for neuropathic pain. CT abd/pelvis ordered. Zofran PRN for nausea. Monitor for medication compliance and for any psychotropic medication side effects. Will continue to monitor ongoing response to treatment. Encouraged participation in milieu.
--- NOTE | 2022-10-04 22:30 | P.PN ---
Progress Note - Text Progress Note Date: 10/02/22 Interval history: (Late entry due to computer problems on 10/02/22) Patient was directable and agreeable to speak with writer technical publications. He reports mood is "not that good", reports acid reflux, nausea and stomach pain. He reports hearing voices telling him he's worthless and to kill himself, but does not appear to be attending to internal stimuli. He reports his mood is angry at himself. He required Haldol 5 mg po x 1 this morning. He reports he was taking Cymbalta at 60 mg at home, and was not taking the Seroquel because he couldn't afford. We discussed Good[facility] and compared prices with [facility] being the cheapest pharmacy for him. He denies suicidal or homicidal ideation, intent or plan. Denies any visual hallucinations. Mental status exam: General Appearance: Patient appears to be stated age, alcocer, fair hygiene/grooming Behavior: No agitated behavior. Patient is calm and directable. Speech: Patient's speech is fluent and non-pressured. Mood/Affect: Mood is "not good" affect is congruent and constricted. Suicidality/Homicidality: Patient endorses suicidal ideation, but denies homicidal ideation intent or plan. Perceptions: Patient denies any auditory or visual hallucinations. Though content/process: There is no evidence of any delusional thought content and thought process is linear and goal-directed. Memory and concentration: AOX3, grossly intact for the purposes of this session Judgment and insight: Improving mildly Assessment/Plan: Continue with current diagnosis. Patient continues to meet criteria for inpatient psychiatric admission for symptom stabilization and safety. Continue Cymbalta 60 mg BID for depression. Zofran PRN for nausea. Monitor for medication compliance and for any psychotropic medication side effects. Will continue to monitor ongoing response to treatment. Encouraged participation in milieu.
[2022-10-05] MEDS: ACETAMINOPHEN TAB 325 MG TAB PO PRN (05:38)
[2022-10-05 07:07] LABS: Albumin 4.3 g/dL (3.5-5.0); Bilirubin, Delta 0.3 mg/dL (0.0-0.2); Total Bilirubin 0.3 mg/dL (0.2-1.3); Total Protein 6.8 g/dL (6.3-8.2)
[2022-10-05] MEDS: PANTOPRAZOLE 40 MG TABLET PO SCH (07:49)
[2022-10-05] MEDS: VENLAFAXINE HCL ER 75 MG CAP PO SCH (07:49)
[2022-10-05] MEDS: DOCUSATE 100 MG CAP PO SCH ×2 (07:49→20:01)
[2022-10-05] MEDS: NICOTINE 14MG/24HR PATCH TRANSDERM SCH (07:49)
[2022-10-05] MEDS: MAGNESIUM HYDROXIDE 2,400 MG/10 ML CUP PO PRN (10:06)
[2022-10-05] MEDS: LORazepam 1 MG TAB PO PRN (13:28)
[2022-10-05] MEDS ORDERED: diphenhydrAMINE 25 MG CAP PO STA (19:06)
--- NOTE | 2022-10-05 19:46 | P.PN ---
Progress Note - Text Progress Note Date: 10/05/22 Interval history: Patient was seen attending group and was directable and agreeable to speak with group underwriter. He reports good mood today, and reports this "is the best I've felt in two months". He fells better now that she is off of the Cymbalta and started the Effexor XR. He denies suicidal ideation, plan or intent. He denies homicidal ideation, intent or plan. Denies any auditory or visual hallucinations. He is compliant with his medications and denies side effects today. We reviewed his lab results and discussed his delta bilirubin is elevated at 0.3 and his ALT is elevated at 64. He has been referred to the GI service, Dr. Ashley Grossman, and should follow-up after discharge to further evaluate his RUQ pain and labs. Dr. Grossman's contact information should be in his discharge instructions. Patient expressed understanding. Mental status exam: General Appearance: Patient appears to be stated age, alcocer, fair hygiene/grooming Behavior: No agitated behavior. Patient is calm and directable Speech: Patient's speech is fluent and non-pressured. Mood/Affect: Mood is good, affect is congruent and euthymic. Suicidality/Homicidality: Patient denies suicidal ideation, plan or intent, but denies homicidal ideation intent or plan. Perceptions: Patient denies any auditory or visual hallucinations. Though content/process: There is no evidence of any delusional thought content and thought process is linear and goal-directed. Memory and concentration: AOX3, grossly intact for the purposes of this session Judgment and insight: improving mildly Assessment/Plan: Continue with current diagnosis. Patient continues to meet criteria for inpatient psychiatric admission for symptom stabilization and safety. Cymbalta discontinued yesterday. Continue Effexor XR 75 mg daily in the morning for depression/anxiety. He was seen by the medical doctor. CT abd/pelvis was negative. He was started on Colace. Delta bilirubin is elevated at 0.3 and his ALT is elevated at 64. He has been referred to the GI service, Dr. Ashley Grossman, and should follow-up after discharge to further evaluate his RUQ pain and labs. Monitor for medication compliance and for any psychotropic medication side effects. Will continue to monitor ongoing response to treatment. Encouraged participation in milieu. He would like referral to inpatient rehab following discharge. If he continues to stabilize, can consider discharge in the next 1-2 days.
[2022-10-05] MEDS: MIRTAZAPINE 15 MG TAB PO SCH (20:01)
[2022-10-05] MEDS: QUEtiapine 100 MG TAB PO SCH (20:01)
[2022-10-06] MEDS: LORazepam 1 MG TAB PO PRN (03:32)
[2022-10-06 03:37] VITALS: BP 137/72; PULSE 117; RESP 17; TEMP 97.5
[2022-10-06] MEDS: NICOTINE 14MG/24HR PATCH TRANSDERM SCH (08:29)
[2022-10-06] MEDS: VENLAFAXINE HCL ER 75 MG CAP PO SCH (08:30)
[2022-10-06] MEDS: PANTOPRAZOLE 40 MG TABLET PO SCH (08:30)
[2022-10-06] MEDS: DOCUSATE 100 MG CAP PO SCH (08:30)
[2022-10-06] MEDS: MAGNESIUM HYDROXIDE 2,400 MG/10 ML CUP PO PRN (08:36)
--- NOTE | 2022-10-06 11:33 | P.DS ---
Providers Date of admission: 10/01/22 04:09 Expected date of discharge: 10/06/22 Attending physician: Benji Dickey MD Consults: 10/01/22 04:16 Consult Physician Routine Consulting Provider: Jaden Lagos Consult Reason/Comments: H&P medical management Do you want consulting provider notified?: Yes, Notify in am Primary care physician: Anthony Rivera MD - Discharge Diagnosis(es) (1) Major depressive disorder, recurrent episode, severe, with psychotic behavior Status: Acute Priority: High (2) Inhalant abuse Status: Chronic Priority: Medium (3) Nicotine dependence Status: Chronic Priority: Medium Hospital Course: Admission HPI: Patient is a , employed, 31-year-old male with significant history of nitrous oxide abuse who presented to our hospital on 10/01/2022, brought in on his own volition for concerns of suicidal ideation and auditory hallucinations. Patient presented to the hospital on 10/01/2022 with a chief complaint of "hearing voices telling me to kill myself that started about 4 days ago." The patient reports that he was feeling significantly better since he was last discharged on 09/19/2022 however has been unable to fill his medications for Seroquel or Lyrica upon discharge. He states that the Seroquel cost him $169 so he stopped taking the medication. The patient was subsequently admitted to our psychiatric unit. Upon evaluation on the psychiatric unit, the patient reported initially that he was feeling an imminent risk of harming himself due to the severity of the auditory hallucinations and depressive symptoms. He was placed on one-to-one supervision. He was also administered Haldol. On evaluation as provider, the patient reports that he has been suicidal for the past 2 weeks since he has been off his medication. He also reports that he has been expressing worsening auditory hallucinations. He says that these voices are "in my head and commanding me to do things like kill myself." Furthermore, the patient reports that he has been engaging in nitrous oxide abuse. He reports that his last use of nitrous oxide inhalant use was approximately 1 week ago. Currently, the patient is endorsing suicidal ideation. He is denying any homicidal ideation. He reports no significant symptoms of tereza outside of substance abuse. He denies any periods of excessive energy, grandiosity, mood lability, or increased goal-directed activity. He is currently not endorsing any paranoia or other delusions. He is unable to identify any acute stressors aside from stopping his prescribed medications due to cost. The patient signed himself voluntarily into the psychiatric unit. Patient has a previous history of major depressive disorder with psychotic features, inhalant abuse, and nicotine dependence. He was last hospitalized under psychiatric unit in August 2022 and was discharged on a regimen of BuSpar, Lyrica, Cymbalta, Seroquel. Patient denies any psychiatric outpatient follow-up. The patient attempted suicide by overdosing back in 2014. Hospital course: Upon admission to the unit patient was initially presenting as depressed with psychomotor slowing and a withdrawn affect. Patient was however directable and agreeable to commence treatment. Patient got along well with other patients on the unit and followed unit protocol. Patient was compliant with the medications and denied any side effects throughout hospital course. Patient was started on a regimen of Cymbalta, Remeron, and Seroquel. The patient continues to endorse significant symptoms of depression and anxiety and was transitioned from Cymbalta to Effexor. On this regimen, the patient displayed significant improvement regards to his target symptoms. Patient spoke of his stressors and engaged in therapy both group and individual. Patient was also seen by medical team for history and physical exam. Over the course the hospitalization, the patient gradually improved in regards to mood, sleep, and became more future and goal oriented with better insight and judgment. On the day of discharge, the patient is not reporting any suicidal or homicidal ideation, intention, and/or plan. He is not reporting any auditory or visual hallucinations. He is denying any paranoia or other delusions. He has been in adherent with his medication is not endorsing any significant side effects. He was counseled at length on the importance of medication adherence and appropriate outpatient follow-up. He was encouraged to use good Rx in order to help afford his medications. The patient does have significant history of substance abuse and was counseled great length on abstaining from all substances including alcohol, tobacco, marijuana, illicit drug use. He was offered and plans to go to inpatient substance-abuse rehabilitation in the near future. Prior to discharge, family meeting will be arranged by social insurance adviser to answer any questions and ensure safety. He is not endorsing any medical issues or concerns. On the day of discharge he is not reporting any chest pain, shortness of breath, palpitations, abdominal pain, or any other issues or concerns. As the patient no longer met criteria for continued inpatient psychiatric hospitalization, he was subsequently discharged. Mental status exam: General Appearance: Patient appears to be stated age is alert, pleasant, and cooperative. Patient is in no acute distress and has fair hygiene and grooming Behavior: Patient is calmly seated without any agitated behavior. Speech: Patient's speech is fluent and nonpressured. Mood/Affect: Patient reports their mood is "feeling great", affect is congruent and euthymic to bright. Suicidality/Homicidality: Patient denies having any suicidal or homicidal ideation intent or plan. Perceptions: Patient denies any auditory or visual hallucinations. Though content/process: There is no evidence of any delusional thought content and thought process is linear and goal-directed. Patient is future oriented Memory and concentration: AOX3, grossly intact for the purposes of this session. Can spell "WORLD" backwards correctly. Judgment and insight: Improved with guarded prognosis Impression: Major depressive disorder, recurrent, severe, with psychotic features Inhalant use disorder Tobacco use disorder Plan: -Continue with discharge today as patient has improved and stabilized psychiatrically and is not currently an imminent threat to himself and/or others. Patient will remain at chronically elevated risk due to his inhalant use disorder and nonadherence with treatment. -Continue medications: Effexor XR 75 mg daily for depression/anxiety Remeron 15 mg daily at bedtime for depression/insomnia Seroquel 100 mg daily at bedtime for mood augmentation -Patient was counseled on the need for medication compliance and appropriate follow-up at mental health and also primary care for medical issues. Patient verbalized understanding and agreed. -Social work to arrange for and conduct family meeting to ensure safety upon discharge and answer any questions/concerns. Social work also to arrange for patients follow up appointments with [facility] for psychiatric care along with follow up with primary care provider. -Patient counseled on abstaining from recreational drugs and marijuana and alcohol. Was informed/educated on the adverse effects on their physical and mental health. Patient verbally agreed and understood. The plan statement substance abuse counseling and rehab in the near future. -Patient was instructed to return to the hospital or seek immediate medical care if their psychiatric or medical symptoms do worsen or reoccur. -Psychoeducation and supportive therapy provided to patient. Risks and benefits of pharmacological treatment versus the risks and benefits of nontreatment weight and discussed. Informed consent discussion held. Common side effects of psychotropics discussed such as, but not limited to headache, GI disturbance, sexual dysfunction, movement disorders, sedation, and orthostatic hypotension. Life threatening and blackbox warnings of prescribed medications also discussed. Potential risks of operating a vehicle or heavy machinery discussed with patient at length. Advised on importance of compliance and a reliable and responsible manner. Patient advised to review FDA consumer labeling of all medications prior to taking. Patient verbalized understanding of potential risks, and agrees with current treatment plan. Patient advised to medically contact physician/emergency personnel if any acute changes in condition occur. Vital Signs Temp 97.5 F L 10/06/22 03:36 Pulse 117 H 10/06/22 03:36 Resp 17 10/06/22 03:36 BP 137/72 10/06/22 03:36 Pulse Ox 98 10/06/22 03:36 FiO2 Laboratory Results WBC 8.1 k/uL (3.8-10.6) 10/01/22 02:00 RBC 4.39 m/uL (4.30-5.90) 10/01/22 02:00 Hgb 14.3 gm/dL (13.0-17.5) 10/01/22 02:00 Hct 38.7 % (39.0-53.0) L 10/01/22 02:00 MCV 88.2 fL (80.0-100.0) 10/01/22 02:00 MCH 32.6 pg (25.0-35.0) 10/01/22 02:00 MCHC 36.9 g/dL (31.0-37.0) 10/01/22 02:00 RDW 14.3 % (11.5-15.5) 10/01/22 02:00 Plt Count 266 k/uL (150-450) 10/01/22 02:00 MPV 7.4 10/01/22 02:00 Neutrophils % 48 % 10/01/22 02:00 Lymphocytes % 43 % 10/01/22 02:00 Monocytes % 4 % 10/01/22 02:00 Eosinophils % 2 % 10/01/22 02:00 Basophils % 1 % 10/01/22 02:00 Neutrophils # 3.9 k/uL (1.3-7.7) 10/01/22 02:00 Lymphocytes # 3.4 k/uL (1.0-4.8) 10/01/22 02:00 Monocytes # 0.3 k/uL (0-1.0) 10/01/22 02:00 Eosinophils # 0.2 k/uL (0-0.7) 10/01/22 02:00 Basophils # 0.1 k/uL (0-0.2) 10/01/22 02:00 Sodium 143 mmol/L (137-145) 10/04/22 06:25 Potassium 4.4 mmol/L (3.5-5.1) 10/04/22 06:25 Chloride 109 mmol/L (98-107) H 10/04/22 06:25 Carbon Dioxide 25 mmol/L (22-30) 10/04/22 06:25 Anion Gap 9 mmol/L 10/04/22 06:25 BUN 13 mg/dL (9-20) 10/04/22 06:25 Creatinine 0.89 mg/dL (0.66-1.25) 10/04/22 06:25 Est GFR (CKD-EPI)AfAm >90 (>60 ml/min/1.73 sqM) 10/04/22 06:25 Est GFR (CKD-EPI)NonAf >90 (>60 ml/min/1.73 sqM) 10/04/22 06:25 Glucose 93 mg/dL (74-99) 10/04/22 06:[address] Glu mg/dL 124 10/01/22 02:00 Hemoglobin A1c 6.0 % (0.0-6.0) 10/01/22 02:00 Calcium 8.7 mg/dL (8.4-10.2) 10/04/22 06:25 Total Bilirubin 0.3 mg/dL (0.2-1.3) 10/05/22 06:20 Conjugated Bilirubin 0.0 mg/dL (0.0-0.3) 10/05/22 06:20 Unconjugated Bilirubin 0.0 mg/dL (0.0-1.1) 10/05/22 06:20 Delta Bilirubin 0.3 mg/dL (0.0-0.2) H 10/05/22 06:20 AST 28 U/L (17-59) 10/05/22 06:20 ALT 59 U/L (4-49) H 10/05/22 06:20 Alkaline Phosphatase 76 U/L (38-126) 10/05/22 06:20 Total Protein 6.8 g/dL (6.3-8.2) 10/05/22 06:20 Albumin 4.3 g/dL (3.5-5.0) 10/05/22 06:20 Amylase 46 U/L (30-110) 10/04/22 14:20 Lipase 49 U/L (23-300) 10/04/22 14:20 Urine Color Yellow 10/01/22 00:15 Urine Appearance Clear (Clear) 10/01/22 00:15 Urine pH 5.5 (5.0-8.0) 10/01/22 00:15 Ur Specific Mason 1.032 (1.001-1.035) 10/01/22 00:15 Urine Protein Trace (Negative) H 10/01/22 00:15 Urine Glucose (UA) Negative (Negative) 10/01/22 00:15 Urine Ketones Trace (Negative) H 10/01/22 00:15 Urine Blood Negative (Negative) 10/01/22 00:15 Urine Nitrite Negative (Negative) 10/01/22 00:15 Urine Bilirubin Negative (Negative) 10/01/22 00:15 Urine Urobilinogen 2.0 mg/dL (<2.0) 10/01/22 00:15 Ur Leukocyte Esterase Negative (Negative) 10/01/22 00:15 Urine Opiates Screen Not Detected (NotDetected) 10/01/22 00:15 Ur Oxycodone Screen Not Detected (NotDetected) 10/01/22 00:15 Urine Methadone Screen Not Detected (NotDetected) 10/01/22 00:15 Ur Propoxyphene Screen Not Detected (NotDetected) 10/01/22 00:15 Ur Barbiturates Screen Not Detected (NotDetected) 10/01/22 00:15 U Tricyclic Antidepress Not Detected (NotDetected) 10/01/22 00:15 Ur Phencyclidine Scrn Not Detected (NotDetected) 10/01/22 00:15 Ur Amphetamines Screen Not Detected (NotDetected) 10/01/22 00:15 U Methamphetamines Scrn Not Detected (NotDetected) 10/01/22 00:15 U Benzodiazepines Scrn Not Detected (NotDetected) 10/01/22 00:15 Urine Cocaine Screen Not Detected (NotDetected) 10/01/22 00:15 U Marijuana (THC) Screen Not Detected (NotDetected) 10/01/22 00:15 Coronavirus (PCR) Not Detected (Not Detectd) 10/01/22 02:00 Allergies Allergy/AdvReac Type Severity Reaction Status Date / Time No Known Allergies Allergy Verified 09/30/22 22:57 Patient Condition at Discharge: Stable Plan - Discharge Summary New Discharge Prescriptions: New Venlafaxine HCl ER [Effexor XR] 75 mg PO DAILY 30 Days #30 cap Mirtazapine [Remeron] 15 mg PO HS 30 Days #30 tab QUEtiapine [SEROquel] 100 mg PO HS 30 Days #30 tab Discontinued busPIRone HCl [Buspar] 10 mg PO BID 30 Days #60 tab Pregabalin [Lyrica] 50 mg PO HS 10 Days #10 cap DULoxetine HCL [Cymbalta] 60 mg PO BID 30 Days #60 cap Nicotine 14Mg/24Hr Patch [Habitrol] 1 patch TRANSDERM DAILY 14 Days #14 patch QUEtiapine [SEROquel] 75 mg PO HS 30 Days #90 tab Acetaminophen Tab [Tylenol] 650 mg PO Q4HR PRN tab PRN Reason: Pain/Discomfort Discharge Medication List Mirtazapine [Remeron] 15 mg PO HS 30 Days #30 tab 10/06/22 [Rx] QUEtiapine [SEROquel] 100 mg PO HS 30 Days #30 tab 10/06/22 [Rx] Venlafaxine HCl ER [Effexor XR] 75 mg PO DAILY 30 Days #30 cap 10/06/22 [Rx] Follow up Appointment(s)/Referral(s): [facility] [Outside] - As Needed (Per admissions, d/t insurance you must complete a walk in, in person, intake upon dc. After, information will be sent to [facility] for reivew.) [facility] [Outside] - 10/08/22 2:00 pm (10/08/2022 2:00PM - 3:00PM EULOGIO BELL 10/12/2022 10:30AM - 12:00PM Anthony Vasquez MD [Primary Care Provider] - 1-2 days Denise Grossman MD [STAFF PHYSICIAN] - 2 Weeks (bone drier operator (stomach doctor)) Patient Instructions/Handouts: How to Stop Smoking (DC), Depression (DC) Activity/Diet/Wound Care/Special Instructions: Avoid the use of street drugs and alcohol. Take all medications as prescribed. When you are in need of refills on your medications, please contact your medical provider and/or outpatient psychiatrist to have this done. Please go to scheduled outpatient appointments for aftercare treatment. If symptoms return or become worse, call the crisis line at and/or go to the nearest emergency room for evaluation. Discharge Disposition: HOME SELF-CARE
== END 2022-10-06 10:08 | disposition home or self-care (01) | DRG 885 ==
LOC: EC 22:51 → 3MHU 10-01 04:09
PROVIDERS: ADMIT Psychiatry & Neurology Psychiatry; ATTEND Psychiatry & Neurology Psychiatry
DX: F33.3 Major depressive disorder, recurrent, severe with psychotic symptoms (principal); Z20.822 Contact with and (suspected) exposure to COVID-19; Z28.21 Immunization not carried out because of patient refusal; F17.200 Nicotine dependence, unspecified, uncomplicated; K59.00 Constipation, unspecified; F43.10 Post-traumatic stress disorder, unspecified; F41.9 Anxiety disorder, unspecified; G47.00 Insomnia, unspecified; F18.10 Inhalant abuse, uncomplicated; R63.0 Anorexia; Z68.31 Body mass index [BMI] 31.0-31.9, adult; Z79.899 Other long term (current) drug therapy
CPT/HCPCS: 36415; 74177; 80048; 80053; 80076; 80306; 81003; 82075; 82150; 83036; 83690; 85025; 87635; 99285

== ENCOUNTER 2024-07-31 23:47 | Inpatient (IN) | payer MEDICAID, OTHER ==
--- NOTE | 2024-08-01 00:42 | ED ---
General Adult HPI - General Chief complaint: Psychiatric Symptoms Stated complaint: petition Time Seen by Provider: 08/01/24 00:12 Source: patient Mode of arrival: ambulatory Limitations: no limitations - History of Present Illness Initial comments: Dictation was produced using [employer] dictation software. please excuse any grammatical, word or spelling errors. Chief Complaint: 33-year-old male with suicidal ideation History of Present Illness: Patient 33-year-old male presents with girlfriend for suicidal ideation. Patient states he has a plan of how he wants to commit suicide he does not want to disclose that with me. His girlfriend states that he has been abusing whippets. Patient denies any medical issues except for some mild nausea. Denies any visual auditory hallucinations. Patient has been evaluated for psychiatric issues in the past. The ROS documented in this emergency department record has been reviewed and confirmed by me. Those systems with pertinent positive or negative responses have been documented in the HPI. All other systems are other negative and/or noncontributory. - Related Data Previous Rx's Medication Instructions Recorded Mirtazapine [Remeron] 15 mg PO HS 30 Days #30 tab 10/06/22 QUEtiapine [SEROquel] 100 mg PO HS 30 Days #30 tab 10/06/22 Venlafaxine HCl ER [Effexor XR] 75 mg PO DAILY 30 Days #30 cap 10/06/22 Allergies Allergy/AdvReac Type Severity Reaction Status Date / Time No Known Allergies Allergy Verified 07/31/24 23:58 Review of Systems ROS Statement: Those systems with pertinent positive or pertinent negative responses have been documented in the HPI. ROS Other: All systems not noted in ROS Statement are negative. Past Medical History Past Medical History: No Reported History Additional Past Medical History / Comment(s): neuropathy History of Any Multi-Drug Resistant Organisms: None Reported Past Surgical History: No Surgical Hx Reported Past Anesthesia/Blood Transfusion Reactions: No Reported Reaction Past Psychological History: Anxiety, Bipolar, Depression, PTSD, Schizophrenia Smoking Status: Current every day smoker Past Alcohol Use History: Occasional Past Drug Use History: Cocaine - Past Family History Mother Family Medical History: Hypertension, Thyroid Disorder Father Family Medical History: No Reported History, Unable to Obtain Sister(s) Family Medical History: No Reported History, Thyroid Disorder Brother(s) Family Medical History: Seizure Disorder Daughter(s) Family Medical History: No Reported History Son(s) Family Medical History: No Reported History General Exam - General Exam Comments Initial Comments: General: Well-appearing, nontoxic, no acute distress. Head: Normocephalic, atraumatic Eyes: PERRLA, EOMI ENT: Airway patent Chest: Nonlabored breathing Skin: No visual rash, normal skin tone Neuro: Alert and oriented 3 Musculoskeletal: No gross abnormalities Limitations: no limitations Course Vital Signs 07/31/24 23:59 Temperature 97.9 F Pulse Rate 97 Respiratory 18 Rate Blood Pressure 138/87 O2 Sat by Pulse 100 Oximetry Medical Decision Making - Medical Decision Making Was pt. sent in by a medical professional or institution (, PA, AUTO DAMAGE ADJUSTER, urgent care, hospital, or detention...) When possible be specific @ -No Did you speak to anyone other than the patient for history (EMS, parent, family, police, friend...)? What history was obtained from this source @ -No Did you review nursing and triage notes (agree or disagree)? Why? @ -I reviewed and agree with nursing and triage notes Were old charts reviewed (outside hosp., previous admission, EMS record, old EKG, old radiological studies, urgent care reports/EKG's, detention records)? Report findings @ -No old charts were reviewed Differential Diagnosis (chest pain, altered mental status, abdominal pain women, abdominal pain men, vaginal bleeding, musculoskeletal, weakness, fever, dyspnea, syncope, headache, dizziness, GI bleed, back pain, seizure, CVA, palpatations, mental health)? @ -Differential Mental Health: Depression, anxiety, bipolar, psychosis, schizophrenia, borderline personality, situational depression, adjustment disorder, behavioral disorder, brain tumor, malingering, substance abuse, encephalopathy, medication reaction, dementia, hypothyroidism, degenerative neurologic disorder, lupus.... This is not meant to be all-inclusive list EKG interpreted by me (3pts min.). @ -None done X-rays interpreted by me (1pt min.). @ -None done CT interpreted by me (1pt min.). @ -None done U/S interpreted by me (1pt. min.). @ -None done What testing was considered but not performed or refused? (CT, X-rays, U/S, labs)? Why? @ -None What meds were considered but not given or refused? Why? @ -None Was smoking cessation discussed for >3mins.? @ -No Were there social determinants of health that impacted care today? How? (Homelessness, low income, unemployed, alcoholism, drug addiction, transportation, low edu. Level, literacy, decrease access to med. care, [facility], rehab)? @ -No Was there de-escalation of care discussed even if they declined (Discuss DNR or withdrawal of care, Hospice)? DNR status @ -No What co-morbidities impacted this encounter? (DM, HTN, Smoking, COPD, CAD, Cancer, CVA, ARF, Chemo, Hep., AIDS, mental health diagnosis, sleep apnea, morbid obesity)? @ -None Was patient admitted / discharged? Hospital course, mention meds given and route, prescriptions, significant lab abnormalities, going to OR and other pertinent info. @ -23-year-old male with suicidal ideation. Vital signs stable. Physical exam is unremarkable. Patient petition by girlfriend. Patient medically cleared for EPS evaluation Evaluated by EPS will be admitted inpatient psych. Patient signed in birdie linares. Did you discuss the management of the patient with other professionals (professionals i.e. , PA, AUTO DAMAGE ADJUSTER, lab, RT, psych nurse, social work lecturer, loading machine operator helper, teacher, promotions officer, onsite case manager)? Give summary @ -No Was critical care preformed (if so, how long)? @ -No Undiagnosed new problem with uncertain prognosis? @ -No Drug Therapy requiring intensive monitoring for toxicity (Heparin, Nitro, Insulin, Cardizem)? @ -No Were any procedures done? @ -No Diagnosis/symptom? Acute, or Chronic, or Acute on Chronic? Uncomplicated (without systemic symptoms) or Complicated (systemic symptoms)? @ -Suicidal ideation Side effects of treatment? @ -No Exacerbation, Progression, or Severe Exacerbation? @ -No Poses a threat to life or bodily function? How? (Chest pain, USA, AR, pneumonia, PE, COPD, DKA, ARF, appy, cholecystitis, CVA, Diverticulitis, Homicidal, Suicidal, threat to staff... and all critical care pts) @ -Yes Disposition Clinical Impression: Suicidal ideation Disposition: TRANSFER TO PSYCH HOSP/UNIT Condition: Fair Referrals: None,Stated [Primary Care Provider] - 1-2 days
[2024-08-01] MEDS: ALPRAZolam 0.5 MG TAB PO STA (00:59)
[2024-08-01] MEDS ORDERED: HALOPERIDOL LACTATE 5 MG/ML 1 ML VIAL IM PRN (05:05)
[2024-08-01] MEDS ORDERED: ACETAMINOPHEN TAB 325 MG TAB PO PRN (05:05)
[2024-08-01] MEDS ORDERED: LORazepam 2 MG/ML INJ IM PRN (05:05)
[2024-08-01] MEDS ORDERED: MAG HYDROX/AL HYDROX/SIMETH 355 ML BOTTLE PO PRN (05:05)
[2024-08-01] MEDS ORDERED: traZODone HCL 50 MG TAB PO PRN (05:05)
[2024-08-01] MEDS: MULTIVITAMINS, THERA 1 EACH TAB PO SCH (11:13)
[2024-08-01] MEDS: FOLIC ACID 1 MG TAB PO SCH (11:13)
[2024-08-01] MEDS: NICOTINE 14MG/24HR PATCH TRANSDERM SCH (11:14)
[2024-08-01] MEDS: THIAMINE 100 MG TAB PO SCH (11:14)
[2024-08-01] MEDS: IBUPROFEN 600 MG TAB PO PRN (12:33)
[2024-08-01] MEDS: LORazepam 1 MG TAB PO PRN ×2 (12:33→18:38)
[2024-08-01] MEDS: VENLAFAXINE HCL ER 75 MG CAP PO SCH (12:40)
--- NOTE | 2024-08-01 13:01 | P.HP ---
Psychiatric H&P - . H&P Date: 08/01/24 History & Physical: Allergies Allergy/AdvReac Type Severity Reaction Status Date / Time No Known Allergies Allergy Verified 07/31/24 23:58 Vital Signs Temp 97.6 F 08/01/24 05:54 Pulse 67 08/01/24 05:54 Resp 16 08/01/24 05:54 BP 137/81 08/01/24 05:54 Pulse Ox 97 08/01/24 05:54 FiO2 Intake & Output 07/31/24 08/01/24 08/01/24 18:59 06:59 18:59 Weight 93.8 kg Laboratory Last Values Influenza Type A (PCR) Not Detected (Not Detectd) 08/01/24 03:54 Influenza Type B (PCR) Not Detected (Not Detectd) 08/01/24 03:54 RSV (PCR) Not Detected (Not Detectd) 08/01/24 03:54 SARS-CoV-2 (PCR) Not Detected (Not Detectd) 08/01/24 03:54 08/01/24 12:15 IDENTIFYING DATA: Patient is a , lives in a condo, works as a byrne, 33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 Patient has been feeling more depressed lately, endorsing suicidal thoughts with a plan. Patient was admitted to the psychiatric unit, has had several inpatient admissions in the past. He has a history of polysubstance abuse including cocaine alcohol and nitrous oxide inhalation. Patient was seen today agreeable to speak to staff writer in the office. He appeared to be disheveled in appearance, states that he is still having suicidal thoughts when asked about a plan he was fairly guarded about it and did not want to say. He states that he realizes he is abusing many substances including cocaine using about 3 or 5 g in a sitting, also claims that he has been using alcohol about 1 L a day and will usually drink every other day in a week however does state that the last drink was about a week ago. Currently denying any withdrawal symptoms from alcohol or shakes history of seizures. He also is endorsing severe inhalant abuse about 4-10 canisters a day for several years. He claims that it has caused a lot of problems for him including nerve pain, unstable mood, claims that he has poor finances poor relationships with his family members and also his girlfriend. Endorsing depression and anxiety. Claims that his sleep has been on and off appetite has been on and off. He claims that he does want to go to rehab. Currently, the patient is endorsing suicidal ideation not endorsing a plan. He is denying any homicidal ideation. He denies any periods of excessive energy, grandiosity, mood lability, or increased goal-directed activity. He is currently not endorsing any paranoia or other delusions. PAST PSYCHIATRIC HISTORY: Patient has a previous history of major depressive disorder, inhalant abuse, and nicotine dependence another polysubstance abuse. He was last hospitalized under psychiatric unit in September 2022 and was previously taking several different medications including BuSpar, Lyrica, Cymbalta, Seroquel. Patient denies any psychiatric outpatient follow-up, he was previously going to [facility] and also [facility] however stopped going and has been closed. The patient attempted suicide by overdosing back in 2014. PMH: Past Medical History: No Reported History History of Any Multi-Drug Resistant Organisms: None Reported Past Surgical History: No Surgical Hx Reported Past Anesthesia/Blood Transfusion Reactions: No Reported Reaction Past Psychological History: Anxiety, Bipolar, Depression, PTSD, Schizophrenia Smoking Status: Current every day smoker Past Alcohol Use History: Occasional Past Drug Use History: None Reported ALLERGIES: NO KNOWN DRUG ALLERGIES CHEMICAL DEPENDENCY HISTORY: As per HPI FAMILY PSYCHIATRIC/SUBSTANCE USE HISTORY: No reported family psychiatric history. SOCIAL HISTORY: Patient was born and raised in [place], [place]. He is currently . He has 4 children. He currently lives with his girlfriend in a condo he works as a byrne currently. he completed high school. He was fairly vague about his legal history. MENTAL STATUS EXAM: General Appearance: Patient appears to be stated age is alert, directable, and attempts to cooperate. Patient appears to have fair hygiene and grooming. Appears to have disheveled appearance. Bloodshot eyes Behavior: Patient is seated without any agitated behavior. Eye contact is appropriate and psychomotor slowing was evident. Speech: Patient's speech is fluent and nonpressured. [place] Mood/Affect: Patient reports their mood is depressed and anxious, affect is congruent and constricted Suicidality/Homicidality: Patient denies having any homicidal ideation intent or plan. Patient endorses suicidal ideation no specific plan. Perceptions: Patient denies any visual hallucinations however he does endorse auditory hallucinations at times. Though content/process: There is no evidence of any delusional thought content and thought process is linear and goal-directed. Fairly concrete Memory and concentration: AOX3, grossly intact for the purposes of this session. Can spell "WORLD" backwards Judgment and insight: Poor STRENGTHS/WEAKNESSES: Strength is that the patient appears to have good family support. Weakness is that the patient engages in substance abuse and is nonadherent with treatment. INTELLECT: average IMPRESSIONS: Major depressive disorder, recurrent, severe Inhalant use disorder, severe dependence Cocaine abuse Alcohol use disorder Nicotine dependence PLAN: -Patient is admitted under voluntary status to MHU for stabilization of psychiatric symptoms and safety. Patient signed adult voluntary form and medication consent and is placed in patient's chart. -Medications : Seroquel 50 mg by mouth at bedtime for psychosis. Effexor XR 75 mg daily for mood/anxiety -Ativan and Haldol PRN for agitation/aggression -Patient was counselled on substance abuse and desired to cut back on use, he also is trying to get back into rehab -Patient was informed of the risks, benefits and side effects of the medication and patient verbally consented to taking the medications. Patient signed med consent form and was placed in chart. -Internal Medicine consult to perform medical evaluation and physical. -NRT - nicotine patch -SW on board for discharge planning. Encourage patient to participate in groups to work on coping skills. 08/01/24 12:52 08/01/24 13:00
[2024-08-01] MEDS: QUEtiapine 50 MG TAB PO SCH (20:59)
[2024-08-02] MEDS: LORazepam 1 MG TAB PO PRN (08:52)
[2024-08-02 08:57] LABS: Basophils # (A) 0.1 k/uL (0-0.2); Basophils % (A) 1 %; Eosinophils # (A) 0.2 k/uL (0-0.7); Eosinophils % (A) 3 %; HCT 47.6 % (39.0-53.0); HGB 16.2 gm/dL (13.0-17.5); Lymphocytes # (A) 2.3 k/uL (1.0-4.8); Lymphocytes % (A) 31 %; MCH 31.3 pg (25.0-35.0); Mean Platelet Volume 7.4; Monocytes # (A) 0.6 k/uL (0-1.0); Monocytes % (A) 9 %; Neutrophils # (A) 3.9 k/uL (1.3-7.7); Neutrophils % (A) 53 %; Platelet Count 310 k/uL (150-450); RBC 5.17 m/uL (4.30-5.90); RDW 13.4 % (11.5-15.5); WBC 7.3 k/uL (3.8-10.6)
[2024-08-02 10:09] LABS: ALT 53 U/L (4-49); AST 24 U/L (17-59); African American GFR (CKD) >90 (>60 ml/min/1.73 sqM); Albumin 4.9 g/dL (3.5-5.0); Alkaline Phosphatase 74 U/L (38-126); Anion Gap 11 mmol/L; Bilirubin,Unconjugated 0.7 mg/dL (0.0-1.1); Blood Urea Nitrogen 16 mg/dL (9-20); Calcium 9.9 mg/dL (8.4-10.2); Carbon Dioxide 26 mmol/L (22-30); Chloride 105 mmol/L (98-107); Glucose 97 mg/dL (74-99); Non-African American GFR(CKD) >90 (>60 ml/min/1.73 sqM); Potassium 4.9 mmol/L (3.5-5.1); Sodium 142 mmol/L (137-145); Total Bilirubin 0.7 mg/dL (0.2-1.3); Total Protein 7.5 g/dL (6.3-8.2)
--- NOTE | 2024-08-02 10:21 | P.PN ---
Progress Note - Text Progress Note Date: 08/02/24 Interval history: Patient was seen today for psychiatric follow-up. He in his room covered with blankets. States that he is feeling drowsy this morning, claims that he feels the medications at nighttime are too strong for him. We spoke about decreasing the Seroquel which she is okay with. Claims that he is feeling a bit better with regards to his mood and anxiety today. Has been mainly keeping himself on the unit. Continues to have disheveled appearance. States that he slept throughout the night very well. Has a fair appetite. Denying any auditory or visual hallucinations. Denying any suicidal homicidal ideations intent or plan. Claims that he still plans on going to rehab Wednesday at [place]. MENTAL STATUS EXAM: General Appearance: Patient appears to be stated age is alert, directable, and attempts to cooperate. Patient appears to have fair hygiene and grooming. Appears to have disheveled appearance. Behavior: Patient is seated without any agitated behavior. Eye contact is today, turned away from medical writer Speech: Patient's speech is fluent and nonpressured. [place] Mood/Affect: Patient reports their mood is depressed, improving mildly, affect is congruent and constricted, improving mildly Suicidality/Homicidality: Patient denies having any homicidal ideation intent or plan. Patient denies any suicidal ideation no specific plan. Perceptions: Patient denies any visual hallucinations denies any auditory hallucinations. Though content/process: There is no evidence of any delusional thought content and thought process is linear and goal-directed. Fairly concrete Memory and concentration: AOX3, grossly intact for the purposes of this session Judgment and insight: Poor, improving mildly IMPRESSIONS: Major depressive disorder, recurrent, severe Inhalant use disorder, severe dependence Cocaine abuse Alcohol use disorder Nicotine dependence PLAN: -Patient is admitted under voluntary status to MHU for stabilization of psychiatric symptoms and safety. Patient signed adult voluntary form and medication consent and is placed in patient's chart. -Medications : Decrease Seroquel 25 mg by mouth at bedtime for psychosis. Effexor XR 75 mg daily for mood/anxiety -Ativan and Haldol PRN for agitation/aggression -NRT - nicotine patch -SW on board for discharge planning. Encourage patient to participate in groups to work on coping skills. Likely discharge Wednesday directly to [place] rehab.
[2024-08-02 16:20] LABS: Chol/HDL Ratio 6.48 Ratio; LDL Cholesterol,Calculated 152.5 mg/dL (0.0-131.0)
[2024-08-02] MEDS: QUEtiapine 25 MG TAB PO SCH (20:18)
[2024-08-02] MEDS: haloperidoL 5 MG TAB PO PRN (20:18)
--- NOTE | 2024-08-03 01:42 | P.MDCNMH ---
History of Present Illness H&P Date: 08/03/24 Chief Complaint: medical eval 33 year old male with no known medical issues coming in for psych evaluation due to suicidal ideation , was brought in by his girlfriend . he admits to cocain abuse , last use was about 1 week ago , he also admits to heavy alcohol patient reports sweating , anxiety , and tremor at times in his hands denies any fever, chills, cough, sore throat, chest pain , trouble breathing , nausea , vomiting, abd pain , changes in urinary or bowel habits. review of systems Pertinent positives as noted in HPI. All other systems were reviewed and are negative on exam Constitutional: No acute distress, conversant, pleasant Eyes: Anicteric sclerae, moist conjunctiva, Pupils equal round reactive to light Lungs: Clear to auscultation Clear to percussion Normal respiratory effort, no accessory muscle use Cardiovascular: Heart regular in rate and rhythm, No murmurs, gallops, or rubs No peripheral edema Abdominal: Soft Nontender, no guarding, rebound or rigidity Abdomen moving with respiration Normoactive bowel sounds Psychiatric: Alert and oriented to person, place and time Neuro Muscles Strength 5/5 in all 4 extremities Sensation to light touch grossly present throughout Cranial nerves II-XII grossly intact Past Medical History Past Medical History: No Reported History Additional Past Medical History / Comment(s): neuropathy History of Any Multi-Drug Resistant Organisms: None Reported Past Surgical History: No Surgical Hx Reported Past Anesthesia/Blood Transfusion Reactions: No Reported Reaction Smoking Status: Current every day smoker - Past Family History Mother Family Medical History: Hypertension, Thyroid Disorder Father Family Medical History: Unable to Obtain Sister(s) Family Medical History: No Reported History, Thyroid Disorder Brother(s) Family Medical History: Seizure Disorder Daughter(s) Family Medical History: No Reported History Son(s) Family Medical History: No Reported History Medications and Allergies Home Medications Medication Instructions Recorded Confirmed Type Mirtazapine [Remeron] 15 mg PO HS 30 Days #30 tab 10/06/22 Rx QUEtiapine [SEROquel] 100 mg PO HS 30 Days #30 tab 10/06/22 Rx Venlafaxine HCl ER [Effexor XR] 75 mg PO DAILY 30 Days #30 cap 10/06/22 Rx Allergies Allergy/AdvReac Type Severity Reaction Status Date / Time No Known Allergies Allergy Verified 07/31/24 23:58 Physical Exam Vitals: Vital Signs Temp Pulse BP Pulse Ox 08/02/24 08:56 97.7 F 108 H 134/89 97 Cranial Nerve Examination - Cranial Nerves Cranial Nerve II- Optic: Intact Cranial Nerve III- Oculomotor: Intact Cranial Nerve IV- Trochlear: Intact Cranial Nerve V- Trigeminal: Intact Cranial Nerve - Abducens: Intact Cranial Nerve VII- Facial: Intact Cranial Nerve VIII- Auditory: Intact Cranial Nerve IX- Glossopharyngeal: Intact Cranial Nerve X- Vagus: Intact Cranial Nerve XI- Accessory: Intact Cranial Nerve XII- Hypoglossal: Intact Results CBC & Chem 7: 08/02/24 08:13 08/02/24 08:13 Labs: Abnormal Lab Results - Last 24 Hours (Table) 08/02/24 08/02/24 Range/Units 08:13 08:13 Hemoglobin A1c 6.1 H (<=6.0) % ALT 53 H (4-49) U/L Triglycerides 227.00 H (0.00-149.00) mg/dL Cholesterol 234.00 H (0.00-200.00) mg/dL LDL Cholesterol, Calc 152.5 H (0.0-131.0) mg/dL VLDL Cholesterol, Calc 45.40 H (5.00-40.00) mg/dL HDL Cholesterol 36.10 L (40.00-60.00) mg/dL TSH 0.320 L (0.465-4.680) mIU/L Assessment and Plan Assessment: sweating suspected hyperthyroid TSH low follow up free T4 suicidal ideation , management per psych polysubstance abuse Bnezo per CIWA thiamine po daily hyperlipidemia consider follow up in 3 months after life style modification with diet and exercise , if remains elevated consider starting statin follow up free t 4 thank you for this consultation
--- NOTE | 2024-08-03 10:30 | P.PN ---
Progress Note - Text Progress Note Date: 08/03/24 Interval history: Patient was seen today for psychiatric follow-up. He in his room covered with blankets. Patient was trembling in his hands, he was also sweating. He claims that he is feeling he is going through more withdrawals at this time. We spoke about adding on Librium to help with withdrawals which she is okay to try. Claims that he is still looking forward to rehab, claims that he is upset that he does not feel well. Claims that he had a difficult time sleeping last night. He is endorsing anxiety and depression today. Has been mainly keeping himself on the unit, mainly in his room. Continues to have disheveled appearance. Has a fair appetite. Denying any auditory or visual hallucinations. Denying any suicidal homicidal ideations intent or plan. MENTAL STATUS EXAM: General Appearance: Patient appears to be stated age is alert, attempts to cooperate. Patient appears to have fair hygiene and grooming. Appears to have disheveled appearance. He is trembling and sweating. Behavior: Patient is in bed without any agitated behavior. Patient is trembling in his hands, sweating from the forehead. Speech: Patient's speech is fluent and nonpressured. [place] Mood/Affect: Patient reports their mood is depressed and anxious, improving mildly, affect is congruent and constricted Suicidality/Homicidality: Patient denies having any homicidal ideation intent or plan. Patient denies any suicidal ideation no specific plan. Perceptions: Patient denies any visual hallucinations denies any auditory hallucinations. Though content/process: There is no evidence of any delusional thought content and thought process is linear and goal-directed. Fairly concrete, focused on his somatic symptoms Memory and concentration: AOX3, grossly intact for the purposes of this session Judgment and insight: Poor, improving mildly IMPRESSIONS: Major depressive disorder, recurrent, severe Inhalant use disorder, severe dependence Cocaine abuse Alcohol use disorder Nicotine dependence PLAN: -Patient is admitted under voluntary status to MHU for stabilization of psychiatric symptoms and safety. Patient signed adult voluntary form and medication consent and is placed in patient's chart. -Medications : Seroquel 25 mg by mouth at bedtime for psychosis. melatonin 10 mg qhs for sleep Increase Effexor XR 150 mg daily for mood/anxiety Start Librium 20 mg 3 times daily for alcohol withdrawal, plan to taper Vistaril as needed for anxiety Trazodone 50 mg nightly as needed for sleep CIWA protocol with as needed Ativan for alcohol withdrawal. Continue to monitor vital signs. -Ativan and Haldol PRN for agitation/aggression -NRT - nicotine patch -SW on board for discharge planning. Encourage patient to participate in groups to work on coping skills. Likely discharge early next week once patient has completed his detox/withdrawals and more psychiatrically stable. Will attempt to reschedule patient's intake at [place] for next week.
[2024-08-03] MEDS: NICOTINE GUM (POLACRILEX) 2 MG GUM BUCCAL PRN (18:28)
[2024-08-04] MEDS: VENLAFAXINE HCL ER 150 MG CAP PO SCH (08:37)
[2024-08-04] MEDS: FOLIC ACID 1 MG TAB PO SCH (11:23)
[2024-08-04] MEDS: hydrOXYzine pamoate 25 MG CAP PO SCH (11:23)
[2024-08-04 11:25] LABS: Appearance,Urine Clear (Clear); Bilirubin,Urine Negative (Negative); Blood,Urine Small (Negative); Color,Urine Light Yellow; Glucose,Urine (UA) Negative (Negative); Ketones,Urine Negative (Negative); Leukocyte Esterase,Urine Negative (Negative); Mucus,Urine Rare /hpf; Nitrite,Urine Negative (Negative); Protein,Urine Trace (Negative); RBC,Urine 1 /hpf (0-5); Specific Gravity,Urine 1.013 (1.001-1.035); Urobilinogen,Urine <2.0 mg/dL (<2.0); WBC,Urine 2 /hpf (0-5)
--- NOTE | 2024-08-04 11:32 | P.PN ---
Progress Note - Text Progress Note Date: 08/04/24 Interval history: Patient was seen today for psychiatric follow-up. He was in his room, just wa duke up, agreeable to speak in the tech writer's office. Claims that he is feeling better with regards to his withdrawal symptoms, less tremors today. He spoke more about his substance use with inhalants mainly stemming back several years. 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 Claims that he is still willing to go to rehab. Claims that he was feeling a bit anxious this morning, was agreeable to try Vistaril today. States that he slept on and off last night however wants to stay on the same medications at nighttime. We spoke about gradually tapering off his Librium which she is okay with. He is appearing to be more visible on the unit, showing more interest in groups. Continues to have disheveled appearance. Has a fair appetite. Denying any auditory or visual hallucinations. Denying any suicidal homicidal ideations intent or plan. MENTAL STATUS EXAM: General Appearance: Patient appears to be stated age is alert, attempts to cooperate. Patient appears to have fair hygiene and grooming. Appears to have disheveled appearance. Behavior: Patient is in bed without any agitated behavior. Patient is more cooperative today Speech: Patient's speech is fluent and nonpressured. Mood/Affect: Patient reports their mood is in the anxious anxious, improving mildly, affect is congruent and constricted, improving mildly Suicidality/Homicidality: Patient denies having any homicidal ideation intent or plan. Patient denies any suicidal ideation no specific plan. Perceptions: Patient denies any visual hallucinations denies any auditory hallucinations. Though content/process: There is no evidence of any delusional thought content and thought process is linear and goal-directed. Fairly concrete, focused on his somatic symptoms Memory and concentration: AOX3, grossly intact for the purposes of this session Judgment and insight: Poor, improving mildly IMPRESSIONS: Major depressive disorder, recurrent, severe Inhalant use disorder, severe dependence Cocaine abuse Alcohol use disorder Nicotine dependence PLAN: -Patient is admitted under voluntary status to MHU for stabilization of psychiatric symptoms and safety. Patient signed adult voluntary form and medication consent and is placed in patient's chart. -Medications : Seroquel 25 mg by mouth at bedtime for psychosis. melatonin 10 mg qhs for sleep Effexor XR 150 mg daily for mood/anxiety Continue to taper off Librium 10 mg 4 times daily for alcohol withdrawal, plan to taper over the weekend. orders already placed Vistaril as needed for anxiety with 25 mg bid scheduled for anxiety. Trazodone 50 mg nightly as needed for sleep CIWA protocol with as needed Ativan for alcohol withdrawal. Continue to monitor vital signs. can discontinue over the weekend -Ativan and Haldol PRN for agitation/aggression -NRT - nicotine patch -SW on board for discharge planning. Encourage patient to participate in groups to work on coping skills. Likely discharge Wednesday morning once patient has c ompleted his detox/withdrawals and more psychiatrically stable. Patient is able to get into rehab Wednesday, discharged directly from the mental health unit there. He will be coordinating a ride to rehab.
[2024-08-04 16:51] LABS: Urine Alcohol Negative (Negative); Urine Barbiturate Negative (Negative); Urine Cocaine Negative (Negative); Urine Methadone Negative (Negative); Urine Opiates Negative (Negative); Urine Phencyclidine Negative (Negative)
[2024-08-04] MEDS: hydrOXYzine pamoate 25 MG CAP PO PRN (21:05)
--- NOTE | 2024-08-05 16:21 | P.PN ---
Progress Note - Text Progress Note Date: 08/05/24 Dictation was produced using [employer] dictation software. Please excuse any grammatical, word or spelling errors. Interval history: Patient was seen in the hallway and was directable and agreeable to speak with the fiction writer in his room for psychiatric follow-up. The pt states that he is feeling better today, reported that his mood is " good," reported that it was difficult for him to follow sleep last night and he was tossing and turning, did that depression and anxiety are at the low side, reported that he is mainly anxious about going to rehab most likely on Wednesday. Denied any current suicidal, self-harm or homicidal thoughts or behavior, denied any current auditory or visual hallucination. Reports that he has been taking his medication, denied any current side effects. He denied any withdrawal symptoms. Reports that he has excited about joining rehab, and reported he does not want to continue substances. Mental status exam: General Appearance: Patient appears to be stated age is alert, attempts to cooperate. Patient appears to have fair hygiene and grooming. Appears to have disheveled appearance. Behavior: Patient is laying in bed without any agitated behavior. Patient is more cooperative today Speech: Patient's speech is fluent and nonpressured. Mood/Affect: Patient reports their mood is in the anxious anxious, improving mildly, affect is congruent and constricted, improving mildly Suicidality/Homicidality: Patient denies having any homicidal ideation intent or plan. Patient denies any suicidal ideation no specific plan. Perceptions: Patient denies any visual hallucinations denies any auditory hallucinations. Though content/process: There is no evidence of any delusional thought content and thought process is linear and goal-directed. Fairly concrete, focused on his somatic symptoms Memory and concentration: AOX3, grossly intact for the purposes of this session Judgment and insight: Poor, improving mildly IMPRESSIONS: Major depressive disorder, recurrent, severe Inhalant use disorder, severe dependence Cocaine abuse Alcohol use disorder Nicotine dependence Assessment/Plan: Continue with current diagnosis. Patient continues to meet criteria for inpatient psychiatric admission for symptom stabilization and safety. Patient will be maintained on current psychotropic medication regimen, continue tapering Librium. Monitor for medication compliance and for any psychotropic medication side effects. Will continue to monitor ongoing response to treatment. Patient continued to agree to going to rehab following this hospitalization. Encouraged participation in milieu.
[2024-08-05] MEDS: traZODone HCL 50 MG TAB PO PRN (22:03)
--- NOTE | 2024-08-06 13:36 | P.PN ---
Progress Note - Text Progress Note Date: 08/06/24 Dictation was produced using [employer] dictation software. Please excuse any grammatical, word or spelling errors. Interval history: Patient was seen in the hallway and was directable and agreeable to speak with the health science writer in the office for psychiatric follow-up. The pt states that he is feeling really good today, reported that his mood is "better", reported that depression and anxiety are on the moderate side, he rated depression at 3/10, and anxiety at 6/10. He denied any current suicidal, self-harm or homicidal thoughts or behavior, denied any current auditory or visual hallucination. Claims that his sleep was on and off last night and reported that he was tossing and turning, reported as 5 hours last night. He admitted to good appetite. He states that he is compliant with his medication, denied any current side effects. Reported that he still up for the plan to go to inpatient substance use rehab following this hospitalization. Mental status exam: General Appearance: Patient appears to be stated age is alert, attempts to cooperate. Patient appears to have fair hygiene and grooming. Behavior: Patient is seated without any agitated behavior. Patient is calm, cooperative and forthcoming today Speech: Patient's speech is fluent and nonpressured. Mood/Affect: Patient reports their mood is in the "better", improving mildly, affect is congruent and constricted, improving mildly Suicidality/Homicidality: Patient denies having any homicidal ideation intent or plan. Patient denies any suicidal ideation no specific plan. Perceptions: Patient denies any visual hallucinations denies any auditory hallucinations. Though content/process: There is no evidence of any delusional thought content and thought process is linear and goal-directed. Fairly concrete, focused on his somatic symptoms Memory and concentration: AOX3, grossly intact for the purposes of this session Judgment and insight: improving mildly IMPRESSIONS: Major depressive disorder, recurrent, severe Inhalant use disorder, severe dependence Cocaine abuse Alcohol use disorder Nicotine dependence Assessment/Plan: Continue with current diagnosis. Patient continues to meet criteria for inpatient psychiatric admission for symptom stabilization and safety. Patient will be maintained on current psychotropic medication regimen, continue tapering Librium. Monitor for medication compliance and for any psychotropic medication side effects. Will continue to monitor ongoing response to treatment. Patient continued to agree to going to rehab following this hospitalization. Encouraged participation in milieu.
[2024-08-07 07:08] VITALS: RESP 16
[2024-08-07] MEDS: MAGNESIUM HYDROXIDE 2,400 MG/30 ML CUP PO PRN (09:33)
--- NOTE | 2024-08-07 12:22 | P.PN ---
Progress Note - Text Progress Note Date: 08/07/24 Interval history: Patient was seen today for psychiatric follow-up. He was lying in his bed. A greeable to speak to typewriter assembler in the office today. Claims that he is gradually getting better over the weekend. Mainly keeping himself on the unit. States that he did not go to many groups today however did go to some over the weekend. Was fairly focused on discharge and also planning. Continues to want to go to rehab. Denying any withdrawal symptoms at this time. States that his mood and anxiety of gradually improving. Claims that he is sleeping fairly at nighttime however did request an increase in his Seroquel for tonight. Has a fair appetite. showing more interest in groups. Continues to have disheveled appearance. Denying any auditory or visual hallucinations. Denying any suicidal homicidal ideations intent or plan. MENTAL STATUS EXAM: General Appearance: Patient appears to be stated age is alert, attempts to cooperate. Patient appears to have fair hygiene and grooming. Appears to have disheveled appearance. Behavior: Patient is in bed without any agitated behavior. Patient is more cooperative today Speech: Patient's speech is fluent and nonpressured. Mood/Affect: Patient reports their mood is in the improving mildly, affect is congruent and improving mildly Suicidality/Homicidality: Patient denies having any homicidal ideation intent or plan. Patient denies any suicidal ideation no specific plan. Perceptions: Patient denies any visual hallucinations denies any auditory hallucinations. Though content/process: There is no evidence of any delusional thought content and thought process is linear and goal-directed. Focused on discharge planning Memory and concentration: AOX3, grossly intact for the purposes of this session Judgment and insight: improving mildly IMPRESSIONS: Major depressive disorder, recurrent, severe Inhalant use disorder, severe dependence Cocaine abuse Alcohol use disorder Nicotine dependence PLAN: -Patient is admitted under voluntary status to MHU for stabilization of psychiatric symptoms and safety. Patient signed adult voluntary form and medication consent and is placed in patient's chart. -Medications : Increase Seroquel 50 mg by mouth at bedtime for mood stabilization/insomnia/mood adjunct Effexor XR 150 mg daily for mood/anxiety Bream was discontinued. Vistaril as needed for anxiety with 25 mg bid scheduled for anxiety. Trazodone 50 mg nightly as needed for sleep -Ativan and Haldol PRN for agitation/aggression -NRT - nicotine patch -SW on board for discharge planning. Encourage patient to participate in groups to work on coping skills. Likely discharge tomorrow morning once patient has completed his detox/withdrawals and more psychiatrically stable. Patient is able to get into rehab Wednesday or , discharged directly from the mental health unit there. He will be coordinating a ride to rehab.
[2024-08-07] MEDS: QUEtiapine 50 MG TAB PO SCH (20:58)
[2024-08-08 07:02] VITALS: BP 117/65; PULSE 88; TEMP 97.8
--- NOTE | 2024-08-08 09:59 | P.DS ---
Providers Date of admission: 08/01/24 04:59 Expected date of discharge: 08/08/24 Attending physician: Umer Villarreal MD Consults: 08/01/24 05:05 Consult Physician Routine Consulting Provider: Lionel Ballesteros Consult Reason/Comments: H & P Do you want consulting provider notified?: Yes Primary care physician: Stated None - Discharge Diagnosis(es) (1) Major depressive disorder, recurrent severe without psychotic features Current Visit: Yes Status: Acute Priority: High (2) Inhalant use disorder, severe, dependence Current Visit: Yes Status: Acute Priority: High (3) Cocaine abuse Current Visit: Yes Status: Acute Priority: High (4) Alcohol use disorder Current Visit: Yes Status: Acute Priority: High (5) Nicotine dependence Current Visit: Yes Status: Acute Priority: Low Hospital Course: Admission HPI: Admission note was completed by automobile and property underwriter "patient is a , lives in a condo, works as a byrne, 33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 Patient presented to the hospital yesterday, apparently was brought in by his girlfriend. Patient has been feeling more depressed lately, endorsing suicidal thoughts with a plan. Patient was admitted to the psychiatric unit, has had several inpatient admissions in the past. He has a history of polysubstance abuse including cocaine alcohol and nitrous oxide inhalation. Patient was seen today agreeable to speak to automobile and property underwriter in the office. He appeared to be disheveled in appearance, states that he is still having suicidal thoughts when asked about a plan he was fairly guarded about it and did not want to say. He states that he realizes he is abusing many substances including cocaine using about 3 or 5 g in a sitting, also claims that he has been using alcohol about 1 L a day and will usually drink every other day in a week however does state that the last drink was about a week ago. Currently denying any withdrawal symptoms from alcohol or shakes history of seizures. He also is endorsing severe inhalant abuse about 4-10 canisters a day for several years. He claims that it has caused a lot of problems for him including nerve pain, unstable mood, claims that he has poor finances poor relationships with his family members and also his girlfriend. Endorsing depression and anxiety. Claims that his sleep has been on and off appetite has been on and off. He claims that he does want to go to rehab. Currently, the patient is endorsing suicidal ideation not endorsing a plan. He is denying any homicidal ideation. He denies any periods of excessive energy, grandiosity, mood lability, or increased goal-directed activity. He is currently not endorsing any paranoia or other delusions." Hospital course: Upon admission to the unit patient was directable and agreeable to commence treatment and signed adult voluntary form. Patient was initially isolative, disheveled going through withdrawals however with time and treatment he eventually got along well with other patients on the unit and followed unit protocol. Patient was compliant with the medications and denied any side effects throughout hospital course. Patient was started on Seroquel increased to dose of 50 mg nightly for mood stabilization/insomnia/mood adjunct, Effexor increased to dose of 150 mg daily for mood/anxiety, Vistaril 25 mg twice daily for anxiety, trazodone 50 mg nightly as needed for sleep. She was placed on CIWA protocol with as needed Ativan and also decreasing dose of Librium for withdrawals. Patient spoke of his stressors and engaged in therapy both group and individual. Patient was also seen by medical team for history and physical exam. Throughout the course of the hospitalization patient gradually improved with regards to mood, anxiety, withdrawals, sleep and returned back to their baseline level of functioning. On the day of discharge patient denied any suicidal or homicidal ideations intent or plan denied any auditory or visual hallucinations. Patient endorsed wanting to live for their health and family. The patient denied any access to guns or weapons. Patient denied any paranoia and did not endorse any delusions. Patient does have a significant history of substance abuse and was counseled on abstaining from all substances including alcohol and marijuana. Patient ended up agreeing to inpatient subtance rehab and getting an intake date which is today at [facility]. Patient was also counseled on the medications and need for regular compliance and was encouraged to follow-up with their outpatient appointment for mental health and also for primary care. Prior to discharge a family meeting will be arranged by social sciences lecturer to answer any questions and ensure safety upon discharge incuding making sure that guns/weapons are either removed from the home or locked away. Mental status exam: General Appearance: Patient appears to be stated age is alert, pleasant, and cooperative. Patient is in no acute distress and has improved hygiene and grooming Behavior: Patient is calmly seated without any agitated behavior. Speech: Patient's speech is fluent and nonpressured. Mood/Affect: Patient reports their mood is "good", affect is congruent and euthymic. Suicidality/Homicidality: Patient denies having any suicidal or homicidal ideation intent or plan. Perceptions: Patient denies any auditory or visual hallucinations. Though content/process: There is no evidence of any delusional thought content and thought process is linear and goal-directed. More future oriented Memory and concentration: AOX3, grossly intact for the purposes of this session. Can spell "WORLD" backwards correctly. Judgment and insight: Chronically poor, however has improved with guarded prognosis Impression: Major depressive disorder recurrent severe episode without psychotic features Inhalant use disorder severe dependence Cocaine abuse Alcohol use disorder Nicotine dependence Plan: -Continue with discharge today as patient has improved and stabilized psychiatrically and is not currently an imminent threat to themself and/or others. Patient will remain at chronically elevated risk for harm to self and/or others due to their impulsivity and substance abuse. -Continue medications: Seroquel 50 mg nightly for mood stabilization/insomnia/mood adjunct, Effexor XR 150 mg daily for mood/anxiety, Vistaril 25 mg twice daily for anxiety. Trazodone 50 mg nightly as needed for insomnia. -Patient was counseled on the need for medication compliance and appropriate follow-up at mental health and also primary care for medical issues. Patient v erbalized understanding and agreed. -Social work to help coordinate patients discharge today and arrange for patient's transportation to rehab. also to ensure safe home environment that guns/weapons are either removed from the home or locked away. Social work also to arrange for patients follow up appointments for psychiatric care along with follow up with primary care provider. -Patient counseled on abstaining from recreational drugs and marijuana and alcohol. Was informed/educated on the adverse effects on their physical and mental health. Patient verbally agreed and understood. -Patient was instructed to return to the hospital or seek immediate medical care if their psychiatric or medical symptoms do worsen or reoccur. Allergies Allergy/AdvReac Type Severity Reaction Status Date / Time No Known Allergies Allergy Verified 07/31/24 23:58 Laboratory Results WBC 7.3 k/uL (3.8-10.6) 08/02/24 08:13 RBC 5.17 m/uL (4.30-5.90) 08/02/24 08:13 Hgb 16.2 gm/dL (13.0-17.5) 08/02/24 08:13 Hct 47.6 % (39.0-53.0) 08/02/24 08:13 MCV 92.0 fL (80.0-100.0) 08/02/24 08:13 MCH 31.3 pg (25.0-35.0) 08/02/24 08:13 MCHC 34.0 g/dL (31.0-37.0) 08/02/24 08:13 RDW 13.4 % (11.5-15.5) 08/02/24 08:13 Plt Count 310 k/uL (150-450) 08/02/24 08:13 MPV 7.4 08/02/24 08:13 Neutrophils % 53 % 08/02/24 08:13 Lymphocytes % 31 % 08/02/24 08:13 Monocytes % 9 % 08/02/24 08:13 Eosinophils % 3 % 08/02/24 08:13 Basophils % 1 % 08/02/24 08:13 Neutrophils # 3.9 k/uL (1.3-7.7) 08/02/24 08:13 Lymphocytes # 2.3 k/uL (1.0-4.8) 08/02/24 08:13 Monocytes # 0.6 k/uL (0-1.0) 08/02/24 08:13 Eosinophils # 0.2 k/uL (0-0.7) 08/02/24 08:13 Basophils # 0.1 k/uL (0-0.2) 08/02/24 08:13 Sodium 142 mmol/L (137-145) 08/02/24 08:13 Potassium 4.9 mmol/L (3.5-5.1) 08/02/24 08:13 Chloride 105 mmol/L (98-107) 08/02/24 08:13 Carbon Dioxide 26 mmol/L (22-30) 08/02/24 08:13 Anion Gap 11 mmol/L 08/02/24 08:13 BUN 16 mg/dL (9-20) 08/02/24 08:13 Creatinine 0.96 mg/dL (0.66-1.25) 08/02/24 08:13 Est GFR (CKD-EPI)AfAm >90 (>60 ml/min/1.73 sqM) 08/02/24 08:13 Est GFR (CKD-EPI)NonAf >90 (>60 ml/min/1.73 sqM) 08/02/24 08:13 Glucose 97 mg/dL (74-99) 08/02/24 08:[address] Glu mg/dL 128 mg/dL 08/02/24 08:13 Hemoglobin A1c 6.1 % (<=6.0) H 08/02/24 08:13 Calcium 9.9 mg/dL (8.4-10.2) 08/02/24 08:13 Total Bilirubin 0.7 mg/dL (0.2-1.3) 08/02/24 08:13 Conjugated Bilirubin 0.0 mg/dL (0.0-0.3) 08/02/24 08:13 Unconjugated Bilirubin 0.7 mg/dL (0.0-1.1) 08/02/24 08:13 Delta Bilirubin 0.0 mg/dL (0.0-0.2) 08/02/24 08:13 AST 24 U/L (17-59) 08/02/24 08:13 ALT 53 U/L (4-49) H 08/02/24 08:13 Alkaline Phosphatase 74 U/L (38-126) 08/02/24 08:13 Total Protein 7.5 g/dL (6.3-8.2) 08/02/24 08:13 Albumin 4.9 g/dL (3.5-5.0) 08/02/24 08:13 Triglycerides 227.00 mg/dL (0.00-149.00) H 08/02/24 08:13 Cholesterol 234.00 mg/dL (0.00-200.00) H 08/02/24 08:13 LDL Cholesterol, Calc 152.5 mg/dL (0.0-131.0) H 08/02/24 08:13 VLDL Cholesterol, Calc 45.40 mg/dL (5.00-40.00) H 08/02/24 08:13 HDL Cholesterol 36.10 mg/dL (40.00-60.00) L 08/02/24 08:13 Cholesterol/HDL Ratio 6.48 Ratio 08/02/24 08:13 TSH 0.320 mIU/L (0.465-4.680) L 08/02/24 08:13 Free T4 1.00 ng/dL (0.80-1.80) 08/02/24 08:13 Urine Color Light Yellow 08/04/24 11:00 Urine Appearance Clear (Clear) 08/04/24 11:00 Urine pH 5.0 (5.0-8.0) 08/04/24 11:00 Ur Specific [place] 1.013 (1.001-1.035) 08/04/24 11:00 Urine Protein Trace (Negative) H 08/04/24 11:00 Urine Glucose (UA) Negative (Negative) 08/04/24 11:00 Urine Ketones Negative (Negative) 08/04/24 11:00 Urine Blood Small (Negative) H 08/04/24 11:00 Urine Nitrite Negative (Negative) 08/04/24 11:00 Urine Bilirubin Negative (Negative) 08/04/24 11:00 Urine Urobilinogen <2.0 mg/dL (<2.0) 08/04/24 11:00 Ur Leukocyte Esterase Negative (Negative) 08/04/24 11:00 Urine RBC 1 /hpf (0-5) 08/04/24 11:00 Urine WBC 2 /hpf (0-5) 08/04/24 11:00 Urine Mucus Rare /hpf (None) H 08/04/24 11:00 Urine Opiates Screen Negative (Negative) 08/04/24 11:00 Urine Methadone Screen Negative (Negative) 08/04/24 11:00 Ur Propoxyphene Screen Negative (Negative) 08/04/24 11:00 Urine Barbiturates Negative (Negative) 08/04/24 11:00 Ur Phencyclidine Scrn Negative (Negative) 08/04/24 11:00 Ur Amphetamine Screen Negative (Negative) 08/04/24 11:00 U Benzodiazepines Scrn Positive (Negative) A 08/04/24 11:00 Urine Cocaine Screen Negative (Negative) 08/04/24 11:00 U Cannabinoids Screen Negative (Negative) 08/04/24 11:00 Urine Alcohol Negative (Negative) 08/04/24 11:00 U Creatinine Drug Scrn 127.0 mg/dL (>=20.0) 08/04/24 11:00 Influenza Type A (PCR) Not Detected (Not Detectd) 08/01/24 03:54 Influenza Type B (PCR) Not Detected (Not Detectd) 08/01/24 03:54 RSV (PCR) Not Detected (Not Detectd) 08/01/24 03:54 SARS-CoV-2 (PCR) Not Detected (Not Detectd) 08/01/24 03:54 Vital Signs Temp 97.8 F 08/08/24 06:47 Pulse 88 08/08/24 06:47 Resp 16 08/08/24 06:47 BP 117/65 08/08/24 06:47 Pulse Ox 98 08/08/24 06:47 FiO2 Patient Condition at Discharge: Stable Plan - Discharge Summary Discharge Rx Participant: No New Discharge Prescriptions: New traZODone HCL [Desyrel] 50 mg PO HS PRN 30 Days #30 tab PRN Reason: Insomnia Venlafaxine HCl ER [Effexor XR] 150 mg PO DAILY 30 Days #30 cap Nicotine 14Mg/24Hr Patch [Habitrol] 1 patch TRANSDERM DAILY 14 Days #14 patch Multivitamins, Thera [Multivitamin (formulary)] 1 each PO DAILY 30 Days #30 tab hydrOXYzine pamoate [Vistaril] 25 mg PO BID 30 Days #60 cap Folic Acid 1 mg PO DAILY 30 Days #30 tab Nicotine Gum (Polacrilex) [Nicorette] 2 mg BUCCAL Q4HR PRN 30 Days #180 pieceofgum PRN Reason: Nicotine Cravings QUEtiapine [SEROquel] 50 mg PO HS 30 Days #30 tab hydrOXYzine pamoate [Vistaril] 50 mg PO DAILY PRN 30 Days #60 cap PRN Reason: Anxiety Thiamine [Vitamin B-1] 100 mg PO DAILY 30 Days #30 tab Discontinued Venlafaxine HCl ER [Effexor XR] 75 mg PO DAILY 30 Days #30 cap Mirtazapine [Remeron] 15 mg PO HS 30 Days #30 tab QUEtiapine [SEROquel] 100 mg PO HS 30 Days #30 tab Discharge Medication List Folic Acid 1 mg PO DAILY 30 Days #30 tab 08/07/24 [Rx] Multivitamins, Thera [Multivitamin (formulary)] 1 each PO DAILY 30 Days #30 tab 08/07/24 [Rx] Nicotine 14Mg/24Hr Patch [Habitrol] 1 patch TRANSDERM DAILY 14 Days #14 patch 08/07/24 [Rx] Nicotine Gum (Polacrilex) [Nicorette] 2 mg BUCCAL Q4HR PRN 30 Days #180 pieceofgum 08/07/24 [Rx] QUEtiapine [SEROquel] 50 mg PO HS 30 Days #30 tab 08/07/24 [Rx] Thiamine [Vitamin B-1] 100 mg PO DAILY 30 Days #30 tab 08/07/24 [Rx] Venlafaxine HCl ER [Effexor XR] 150 mg PO DAILY 30 Days #30 cap 08/07/24 [Rx] hydrOXYzine pamoate [Vistaril] 25 mg PO BID 30 Days #60 cap 08/07/24 [Rx] hydrOXYzine pamoate [Vistaril] 50 mg PO DAILY PRN 30 Days #60 cap 08/07/24 [Rx] traZODone HCL [Desyrel] 50 mg PO HS PRN 30 Days #30 tab 08/07/24 [Rx] Follow up Appointment(s)/Referral(s): Padmini Spear [Other] - 08/08/24 12:00 pm (K[facility] for intake ) [facility] [NON-STAFF] - 1 Week Patient Instructions/Handouts: How to Stop Smoking (DC), Depression (DC), Abuse of Alcohol (DC) Activity/Diet/Wound Care/Special Instructions: [facility] Discharge Info Avoid the use of street drugs and alcohol. Take all medications as prescribed. When you are in need of refills on your medications, please contact your outpatient medical provider and/or outpatient psychiatrist. Please go to your scheduled outpatient appointments for aftercare treatment. If symptoms return or become worse, call the crisis line at or and/or visit the nearest emergency room for assistance. National Suicide and Crisis Lifeline - call or text 988 Discharge Disposition: OTHER INSTITUTION NOT DEFINED
== END 2024-08-08 10:27 | DRG 753 ==
LOC: EC 23:47 → 3MHU 08-01 04:59
PROVIDERS: ADMIT Psychiatry & Neurology Psychiatry; ATTEND Psychiatry & Neurology Psychiatry
DX: F31.9 Bipolar disorder, unspecified (principal); F18.20 Inhalant dependence, uncomplicated; F14.10 Cocaine abuse, uncomplicated; F17.200 Nicotine dependence, unspecified, uncomplicated; R45.851 Suicidal ideations; F20.9 Schizophrenia, unspecified; F43.10 Post-traumatic stress disorder, unspecified; F41.9 Anxiety disorder, unspecified; E78.5 Hyperlipidemia, unspecified; F10.139 Alcohol abuse with withdrawal, unspecified
CPT/HCPCS: 80053; 80061; 80306; 81001; 82075; 82248; 83036; 84439; 84443; 85025; 87636; 99285